=== PATIENT | male | born 1965 | race Caucasian/White ===

== ENCOUNTER 2022-06-30 19:19 | Emergency (ER) | payer SELFPAY ==
[2022-06-30 19:22] VITALS: BP 184/104; PULSE 106; RESP 18; TEMP 36.5; O2SAT 98
--- NOTE | 2022-06-30 19:26 | ECG_ITS ---
Measurements Intervals [place] Rate: 95 P: 51 MO: 148 QRS: 11 QRSD: 111 T: 49 QT: 348 QTc: 439 Interpretive Statements SINUS RHYTHM POSSIBLE LEFT ATRIAL ENLARGEMENT [-0.1mV P WAVE IN V1/V2] INCOMPLETE RIGHT BUNDLE BRANCH BLOCK [90+ ms QRS DURATION, TERMINAL R IN V1/V2, 40+ ms S IN I/aVL/V4/V5/V6] NO PREVIOUS ECG AVAILABLE FOR COMPARISON Electronically Signed On 07-01-2022 13:16:54 CMM PROGRAMMER by Nader Rondon M.D.
== END 2022-06-30 19:35 | disposition left against medical advice (07) ==
PROVIDERS: Emergency Provider Emergency Medicine; PCP Internal Medicine
DX: R20.2 Paresthesia of skin (principal)
CPT/HCPCS: 93005; 99199

== ENCOUNTER 2023-11-10 10:36 | Emergency (ER) | payer BC, SELFPAY ==
[2023-11-10 10:45] VITALS: BP 146/98; PULSE 84; RESP 16; TEMP 36.7; O2SAT 99
--- NOTE | 2023-11-10 10:50 | ED.EYEPROB ---
HPI - Eye Problem General Chief complaint: Eye Problems Stated complaint: EYE REDNESS/ITCHING Time Seen by Provider: 11/10/23 10:46 Source: patient and RN notes reviewed Mode of arrival: ambulatory Limitations: no limitations History of Present Illness HPI Narrative: 58-year-old male presents with concern for right Descovy irritation, discomfort, drainage from the right eye a that started 2 days ago. He denies any trauma or injury to the eye, he does not were contact lenses. Denies any recent upper respiratory infection. chief complaint: eye redness Related Data Allergies Allergy/AdvReac Type Severity Reaction Status Date / Time No Known Allergies Allergy Verified 11/10/23 10:45 Review of Systems Review of Systems: CONSTITUTIONAL: Denies malaise, chills, sweats, or fever. EYES: Denies visual changes. Reports right redness, irritation, discharge. ENT: Denies rhinorrhea, congestion, sinus pain, otalgia or sore throat. SKIN: Denies rash or itching. NEUROLOGIC: Denies numbness, weakness, or headache. PSYCHIATRIC: Denies anxiety or depression. All systems reviewed & are unremarkable except as noted in HPI and below [facility] Family History Family History (System 07/11/19 @ 09:12 by Melly Lowe) Father Patient's father is in good health Sibling Patient's sister is in good health Mother Family history of diabetes mellitus in first degree relative Social History Social History (System 07/11/19 @ 09:12 by Melly Lowe) Smoking status: Never smoker Alcohol intake: never Comments At time of signature, agree with nursing past medical, surgical, social and family history. There is no relevant family history pertinent to the presenting complaint Exam Narrative: GENERAL: Well-appearing, well-nourished, and in no acute distress. HEAD: Normocephalic, atraumatic. EYES: PERRLA, left sclera clear, and EOMI. No nystagmus. Right sclera and Bilateral conjunctivae injected with drainage noted. Upper and lower eyelid unremarkable, no periorbital edema noted ENT: Nares clear, turbinates pink, no rhinorrhea or epistaxis. Mucous membranes moist. TM pearly wynne with sharp light reflex bilaterally; no tragal tenderness. NECK: Supple. CHEST: No respiratory distress. Speaks in full sentences. HEART: Regular rate and rhythm. SKIN: Warm, dry, no visible rash. NEURO: Alert and oriented x3. PSYCH: Normal mood and affect Course Course Emergency Course: Patient is aware of diagnosis, understands and agrees to treatment plan. Anticipatory guidance given. Patient agrees to follow-up as directed and is aware of reasons to seek care at the emergency department. Portions of this record may have been created with voice recognition software Level of Care: Express Care Visit Vital Signs Vital signs: Vital Signs Temperature 98.1 F 11/10/23 10:45 Pulse Rate 84 11/10/23 10:45 Respiratory Rate 16 11/10/23 10:45 Blood Pressure 146/98 H 11/10/23 10:45 Pulse Oximetry 99 11/10/23 10:45 Temperature 98.1 F 11/10/23 10:45 Pulse Rate 84 11/10/23 10:45 Respiratory Rate 16 11/10/23 10:45 Blood Pressure 146/98 H 11/10/23 10:45 Pulse Oximetry 99 11/10/23 10:45 Reviewed. MDM - Eye Problem MDM Narrative Medical decision making narrative: Consideration of the following conditions may be warranted for the presenting problem, they are not final diagnoses: Bacterial conjunctivitis, allergic conjunctivitis, viral conjunctivitis, foreign body, blepharitis, chalazion, hordeolum, corneal abrasion, preseptal cellulitis, orbital cellulitis. No evidence of proptosis, ophthalmoplegia, vision loss, pain with eye movement. Exam findings show no acute concerns or changes; patient is non-toxic appearing and is in no distress. Patient is appropriate for outpatient treatment and follow-up. Critical Care Time Critical Care Time Critical Care Time: No Discharge Plan Discharge Clinical Impress
== END 2023-11-10 10:56 | disposition home or self-care (01) ==
PROVIDERS: Emergency Provider Nurse Practitioner
DX: H10.9 Unspecified conjunctivitis (principal)
CPT/HCPCS: 99213; G0463

== ENCOUNTER 2024-05-12 06:57 | Inpatient (IN) | payer BC, SELFPAY ==
[2024-05-12] VITALS (27 sets, daily range): BP systolic 96–126; BP diastolic 70–105; PULSE 93–116; RESP 12–28; TEMP 36.3–37.7; O2SAT 94–100; BMI 34.1
--- NOTE | 2024-05-12 | ECHO_ITS ---
Patient Info Name: Bert Morales Age: 59 years : 1965 Gender: Male Ht: 71 in Wt: 244 lbs BSA: 2.39 m2 HR: 103 bpm BP: 123 / 85 mmHg Heart Rhythm: Sinus Rhythm, Right Bundle Branch Block Technical Quality: Fair Exam Date: 05/12/2024 11:12 AM Exam Location: Echo Lab Patient Status: Inpatient Admit Date: 05/12/2024 Staff Ordering Physician: Nader Rondon MD (jaclyn/gregoria) Product Support Rep: Andrea Pat RDCS Attending Provider: Nader Rondon MD (jaclyn/gregoria) Referring Physician: Alcon ACE; Exam Type: CA echo dop color flow w con Study Info Indications - NSTEMI Complete two-dimensional, color flow and Doppler transthoracic echocardiogram is performed with contrast to opacify the left ventricle and to improve the deliniation of the left ventricle endocardial borders. Summary 1. Left ventricular chamber dimension is moderately enlarged. 2. Left ventricular systolic function is severely reduced, estimated at 15-20%. 3. The left ventricular diastolic function is grade I diastolic dysfunction. 4. Right ventricular systolic function is normal. 5. Left atrial chamber dimension is mildly enlarged. 6. There is mild mitral valve regurgitation. 7. There is mild tricuspid valve regurgitation. Left Ventricle Left ventricular chamber dimension is moderately enlarged. Left ventricular systolic function is severely reduced, estimated at 15-20%. There is no increased left ventricular wall thickness. The left ventricular diastolic function is grade I diastolic dysfunction. Right Ventricle Right ventricular chamber dimension is normal. Right ventricular systolic function is normal. Left Atria Left atrial chamber dimension is mildly enlarged. Right Atria Right atrial chamber dimension is normal. Atrial Septum Intact interatrial septum visualized by color flow imaging. Aortic Valve The aortic valve is not well visualized. There is no aortic valve stenosis. There is mild aortic valve calcification. Pulmonic Valve The pulmonic valve is not well visualized. Mitral Valve There is mild mitral valve regurgitation. Tricuspid Valve There is mild tricuspid valve regurgitation. Pericardium/Pleural There is no pericardial effusion. Inferior Vena Cava Dilated inferior vena cava with <50% collapse upon inspiration consistent with elevated right atrial pressure, 15 mmHg. Aorta The aortic root size at the sinus of Valsalva is normal. Left Ventricular Outflow Tract Name Value Normal LVOT 2D LVOT Diameter 2.01 cm LVOT Doppler LVOT Peak Gradient 2 mmHg LVOT Mean Gradient 1 mmHg LVOT VTI 10.48 cm LVOT VTI/AV VTI Ratio 0.84 LVOT Stroke Volume 33.31 ml LVOT CO 3.11 l/min LVOT CI 1.30 L/min/m2 Mitral Valve Name Value Normal MV Doppler MV Decel Hall 513.96 cm/s2 MV PHT 0 s MV Area (PHT) 5.16 cm2 4.00-5.00 MV Regurgitation Doppler MR Peak Gradient 30 mmHg MV Diastolic Function MV E Peak Velocity 75.55 cm/s MV A Peak Velocity 53.18 cm/s MV E/A 1.42 MV Decel Time 0 s MV Annular TDI MV E/e' (Septal) 16.11 <=8.00 MV E/e' (Lateral) 21.20 <=8.00 MV E/e' (Average) 18.65 Tricuspid Valve Name Value Normal TV Regurgitation Doppler TR Peak Velocity 127.41 cm/s TR Peak Gradient 6 mmHg Estimated PAP/RSVP RA Pressure 15 mmHg <=5 PA Systolic Pressure 21 mmHg <36 RV Systolic Pressure 21 mmHg <36 Aortic Valve Name Value Normal AV Doppler AV Peak Velocity 77.64 cm/s AV Peak Gradient 2 mmHg AV Mean Gradient 2 mmHg AV VTI 12.53 cm AV Area (Cont Eq VTI) 2.66 cm2 >=3.00 AV Area (Cont Eq Tommy) 2.83 cm2 AV Regurgitation 2D LVOT Area 3.18 cm2 Ventricles Name Value Normal LV Dimensions 2D/MM IVS Diastolic Thickness (2D) 1.00 cm 0.60-1.00 LVID Diastole (2D) 6.03 cm 4.20-5.80 LVIW Diastolic Thickness (2D) 0.97 cm 0.60-1.00 LVID Systole (2D) 4.05 cm 2.50-4.00 LVOT Diameter 2.01 cm LV Mass (2D Cubed) 244.89 g 88.00-224.00 LV Mass Index (2D Cubed) 0.01 g/cm2 0.00-0.01 Relative Wall Thickness (2D) 0.32 LV Fractional Shortening/Ejection Fraction 2D/MM LV Fractional Shortening (2D) 33 % 25-43 LV EF (2D Teicholz) 60 % 52-72 LV Diastolic Volume (4C MOD) 145.71 ml LV EF (4C MOD) 60 % LV Diastolic Volume (2C MOD) 125.09 ml LV EF (2C MOD) 61 % LV Diastolic Volume (BP MOD) 137.40 ml 62.00-150.00 LV Diastolic Volume Index (BP MOD) 0.06 l/m2 0.03-0.07 LV Systolic Volume (BP MOD) 52.98 ml 21.00-61.00 LV Systolic Volume Index (BP MOD) 0.02 l/m2 0.01-0.03 LV EF (BP MOD) 61 % 52-72 LV Diastolic Length (4C) 8.76 cm LV Systolic Length (4C) 6.55 cm LV Stroke Volume (4C MOD) 87.67 ml Atria Name Value Normal LA Dimensions LA Volume (4C A-L) 33.74 ml LA Volume (BP A-L) 41.31 ml RA Dimensions RA Area (4C) 8.93 cm2 <=18.00 Report Signatures
--- NOTE | ~2024-05-12 | XR_ITS ---
XR chest 1V portable 05/12/2024 11:57 Indication: Shortness of breath Procedure: AP portable chest Comparison: No prior studies for comparison. Findings: Cardiomegaly with interstitial edema. No pleural effusion or pneumothorax. No acute osseous abnormality. Impression: 1: Mild interstitial edema. Reviewed, dictated and finalized at location B. Impression: 1: Mild interstitial edema.
--- NOTE | ~2024-05-12 | XR_ITS ---
EXAMINATION: XR chest PICC line DATE: 05/12/2024 13:04 INDICATION: Central line placement. TECHNIQUE: A single frontal view of the chest was obtained on 2 radiographs. COMPARISON: Chest view 05/12/2024 FINDINGS: There is no pneumonia, pleural effusion, or pneumothorax. The heart size is normal. A left upper extremity peripherally inserted central venous catheter (PICC) is seen with tip in the superior vena cava. IMPRESSION: 1. PICC tip in the superior vena cava. Reviewed, dictated and finalized at location A.
--- NOTE | ~2024-05-12 | XR_ITS ---
EXAMINATION: XR chest 1V portable DATE: 05/14/2024 03:01 INDICATION: Hypoxia. TECHNIQUE: A single frontal view of the chest was obtained. COMPARISON: Chest single view 05/12/2024 FINDINGS: The patient is rotated to his left. There are airspace opacities in left lower lung zone. T here is a small left pleural effusion. No pneumothorax. The heart size is normal. A left upper extrem ity peripherally inserted central venous catheter (PICC) is seen with tip at superior cavoatrial junc tion. IMPRESSION: 1. Worsened airspace opacities in left lower lung zone, consistent with atelectasis versus pneumonia. 2. Small left pleural effusion. Reviewed, dictated and finalized at location A. IMPRESSION: 1. Worsened airspace opacities in left lower lung zone, consistent with atelect asis versus pneumonia. 2. Small left pleural effusion.
--- NOTE | 2024-05-12 07:00 | ECG_ITS ---
Test Date: 2024-05-12 07:07:27 Measurements Intervals [place] Rate: 108 P: 55 [place]: 160 QRS: 94 QRSD: 154 T: 64 QT: 402 QTc: 541 Interpretive Statements SINUS TACHYCARDIA LEFT ATRIAL ENLARGEMENT [-0.15mV P-WAVE IN V1/V2] BORDERLINE RIGHT AXIS DEVIATION [QRS AXIS > 90] RIGHT BUNDLE BRANCH BLOCK MARKED ST ELEVATION, CONSIDER ANTERIOR INJURY [MARKED ST ELEVATION W/O NORMALLY INFLECTED T-WAVE IN V2-V5] MARKED ST ELEVATION, CONSIDER INFERIOR INJURY [MARKED ST ELEVATION W/O NORMALLY INFLECTED T-WAVE IN II/aVF] ACUTE [place] No previous ECG available for comparison Electronically Signed On 05-12-2024 15:34:42 CDT by Nader Rondon M.D.
--- NOTE | 2024-05-12 07:12 | ECG_ITS ---
Test Date: 2024-05-12 07:21:09 Measurements Intervals [place] Rate: 103 P: 70 [place]: 178 QRS: 107 QRSD: 153 T: 30 QT: 398 QTc: 523 Interpretive Statements ALTERNATE LEAD PLACEMENT: Posterior V1: V7, V2: V8, V3: V9, V4: V4, V5: V5, V6: V6 SINUS TACHYCARDIA LEFT ATRIAL ENLARGEMENT RIGHT BUNDLE BRANCH BLOCK MARKED ST ELEVATION, CONSIDER ANTERIOR INJURY [MARKED ST ELEVATION W/O NORMALLY INFLECTED T-WAVE IN V2-V5] MARKED ST ELEVATION, CONSIDER INFERIOR INJURY [MARKED ST ELEVATION W/O NORMALLY INFLECTED T-WAVE IN II/aVF] ACUTE ID Compared to ECG 05/12/2024 07:07:27 NO SIGNIFICANT CHANGES Electronically Signed On 05-12-2024 15:35:28 CDT by Nader Rondon M.D.
[2024-05-12] MEDS: ASPIRIN 81 MG CHEWABLE TABLET 324 MG PO (07:32)
--- NOTE | 2024-05-12 07:36 | ED_ITS ---
HPI - Chest Pain General Chief Complaint: Chest Pain Stated Complaint: chest pain/sob Time Seen by Provider: 05/12/24 07:34 Source: patient Limitations: no limitations History of Present Illness HPI narrative: Patient presents with acute onset chest pain that started at 1am while he was sleeping, waking him up. Pain is substernal, not radiating although he describes the feeling that his shoulders feel both weak and heavy. He became sweaty with the episode as well as nauseated. No vomiting but has been dry heaving. He noted that his heart rate, which is normally in the 70s, read 114 on his apple watch. [place] like he needed deep breaths. Questionable history of hypertension. He does have hyperlipidemia but is not on a statin. No prior [place]/TIA/CVA. No family history FL <65yo. He has type 2 diabetes, not on insulin. Non smoker. Related Data Home Medications Medication Instructions Recorded Confirmed No Home Medications 05/12/24 05/12/24 Allergies Allergy/AdvReac Type Severity Reaction Status Date / Time No Known Allergies Allergy Verified 05/12/24 06:57 [facility] Past Medical History Medical History Hyperlipidemia Hypertension Non-insulin dependent type 2 diabetes mellitus Family History Family History Father Patient's father is in good health Sibling Patient's sister is in good health Mother Family history of diabetes mellitus in first degree relative TIA (transient ischemic attack) Social History Social History (Updated 05/12/24 @ 22:35 by Savanna Chacon MD) Social History: Occasional alcohol intake. Denies any smoking or drug use. 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 . Smoking status: Never smoker Alcohol intake: current Drinks per week: 1 Substance use: never Do You Feel Safe in your Home?: Yes Lack of Transportation: No Lack of Food: Never True Current Housing: Decline to Answer Concerned About Future Housing: Decline to Answer Difficulty Paying Gas/Electric Bills: Decline to Answer Difficulty Paying for Meds: Decline to Answer Currently Unemployed: Decline to Answer Education: Decline to Answer Difficulty w/ Childcare or Family Care: Decline to Answer Spiritual care concerns: No Exam Narrative: GENERAL: Acutely ill appearing, well-nourished but pale HEAD: Normocephalic, atraumatic. EYES: Non injected, non icteric ENT: Nares clear, no rhinorrhea or epistaxis. NECK: Supple. CHEST: Speaking in full sentences. No respiratory distress. HEART: Tachycardic rate and rhythm. . ABDOMEN: Soft, nondistended. Obese. EXTREMITIES: Normal range of motion. No lower extremity edema. SKIN: Warm, no rash. Mildly Diaphoretic. NEURO: No focal deficits. Alert and oriented x3. PSYCH: Congruent mood and affect. Course Vital Signs Vital signs: Vital Signs Temperature 97.6 F 05/12/24 07:02 Pulse Rate 109 H 05/12/24 07:02 Respiratory Rate 16 05/12/24 07:02 Blood Pressure 120/89 05/12/24 07:02 Pulse Oximetry 100 05/12/24 07:02 Oxygen Delivery Room Air 05/12/24 07:02 Temperature 99.6 F 05/12/24 22:05 Pulse Rate 96 05/12/24 22:05 Respiratory Rate 20 05/12/24 22:05 Blood Pressure 108/74 05/12/24 22:05 Pulse Oximetry 99 05/12/24 22:05 Oxygen Delivery Room Air 05/12/24 20:00 Oxygen Flow Rate 2 05/12/24 16:00 MDM - Chest Pain MDM Narrative Medical decision making narrative: Patient presents with acute onset chest pain waking him from sleep at 1 am. In the ED he is afebrile with VS that show tachycardia. I am concerned about the findings on the initial EKG. Requested posterior EKG be performed while attempt to find old EKG for comparison and I go to evaluate the patient. STory is concerning as are the EKGs and the change from previous. Discussed with Dr Rondon who concurs with activating STEMI / environmental laboratory technician and gives recommendations for pre medication loading. Patient has already received aspirin. I am notified the patient's glucose is 530. Urinalysis, beta hydroxybutyrate, and initial 1 L fluid bolus ordered while await other studies. For this and other risk factor stratification/modification, also ordered hemoglobin A1c and lipid panel. He does have an anion gap and slight acidosis. Sodium corrects to 143-146 (psuedohyponatremia) given hyperglycemia. Patient has left the emergency department and gone to the cardiac catheterization lab at the time his troponin lab results as elevated. === HEART SCORE History 2 highly suspicious 1 moderately suspicious 0 slightly suspicious History score [address] depression/elevation not due to LBBB, LVH, or digoxin [address] depression but LBBB, LVH, nonspecific repolarization changes 0 normal ECG score 2 Age 2 >/= 65 1 45-64 0 <45 Age score 1 Risk factors (HTN, hypercholesterolemia, DM, obesity with BMI >30, current smoker or cessation </=3mo), positive fam hx with parent or sibling with CVD before age 65, atherosclerotic disease (prior [place], PCI/CABG, CVA/TIA, or peripheral arterial disease) 2 >/= 3 risk factors or history of atherosclerotic dz 1 - 1-2 risk factors 0 no known risk factors Risk factor score 2 (questionable HTN, HLD, DM, obesity) Initial Troponin 2 >3 times normal limit 1 1-3 times normal limit 0 less than or equal to normal limit Troponin score 2 (>45 x upper limit of normal) Total HEART Score 8 Critical Care: 1 or more vital organ systems impaired with a high probability of imminent or life-threatening deterioration in the patient's condition requiring frequent personal assessment and manipulation of the patient's condition. This included time spent evaluating the patient, speaking with EMS pre-hospital personnel and family, reviewing/interpreting laboratory/imaging studies, discussing the case with consultants or admitting teams, retrieving data and reviewing charts, monitoring for decompensation, documenting the visit, and performing bundled procedures exclusive of separately billed procedures. Lab Data 05/12/24 07:30 05/12/24 18:05 Labs: Lab Results 05/12/24 Range/Units 07:30 WBC 12.5 H (4.5-10.0) K/mm3 RBC 5.27 (4.6-6.20) M/mm3 Hgb 16.0 (14.0-18.0) g/dL Hct 47.8 (42.0-52.0) % MCV 90.7 (80-100) fl MCH 30.4 (26-34) pg MCHC 33.5 (32-36) g/dl RDW 12.4 (11.5-14.5) % Plt Count 301 (150-375) k/mm3 MPV 10.2 (7.4-10.4) fl Immature Gran % (Auto) 0.6 H (0-0.5) % Neut % (Auto) 83.4 H (45.5-73.1) % Lymph % (Auto) 12.4 L (18.3-44.2) % [place] % (Auto) 3.3 (2.6-8.5) % Eos % (Auto) 0.1 (0-4.4) % Baso % (Auto) 0.2 (0.2-1.2) % Lymph # (Auto) 1.55 (0.9-3.2) K/mm3 [place] # (Auto) 0.4 (0.1-0.6) K/mm3 Eos # (Auto) 0.0 (0-0.3) K/mm3 Baso # (Auto) 0.0 (0.0-0.1) K/mm3 Abs Immat Gran (auto) 0.07 H (0.00-0.031) K/mm3 Absolute Neuts (auto) 10.5 H (1.3-6.7) K/mm3 Absolute Nucleated RBC 0.000 (0.0-0.012) K/mm3 Nucleated RBC % 0.0 (0.0-0.2) % PT 13.1 (11.1-14.7) Seconds INR 1.0 APTT 23.3 (22.3-36.8) Seconds Sodium 136 L (137-145) mmol/L Potassium 4.3 (3.4-5.0) mmol/L Chloride 96 L (98-107) mmol/L Carbon Dioxide 20 L (22-30) mmol/L Anion Gap 20 H (4-12) mmol/L BUN 19 (9-20) mg/dL Creatinine 1.10 (0.7-1.3) mg/dL Estim Creat Clear Calc 82 ml/min Estimated GFR > 60 (59 - ) Glucose 530 H* (65-110) mg/dL Hemoglobin A1c 12.1 H (<5.7) % Calcium 8.9 (8.4-10.2) mg/dL Total Bilirubin 1.0 (0.2-1.3) mg/dL AST 51 (17-59) U/L ALT 36 (6-50) U/L Alkaline Phosphatase 89 (38-126) U/L Troponin I 1.540 H* (0.000-0.034) ng/mL Total Protein 8.0 (6.3-8.2) g/dL Albumin 4.7 (3.5-5.1) g/dL Triglycerides 219 H (<150) mg/dL Cholesterol 222 H (0-200) mg/dL LDL Cholesterol Direct 148 mg/dL HDL Direct 36 mg/dL Lipase 71 (23-300) U/L Beta-Hydroxybutyrate/Acetoacetate 2.79 H (0.02-0.27) mmol/L ECG Data EKG #1: Attestation: I personally reviewed and interpreted this ECG as follows: ECG completion date: 05/12/24 ECG completion time: 07:07 Prior ECG tracings: available for review (06/30/2022 without the features identified on today's EKG) Interpretation: patient is concerning ST segment elevations in leads 3 and AVF as well as V3 and V4 Concerning for inferior and anterior infarction. Sinus tachycardia rate of 108 beats per minute. ID interval 160. QRS 154. QT/QTC 402/541. EKG #2: Attestation: I personally reviewed and interpreted this ECG as follows: ECG completion date: 05/12/24 ECG completion time: 07:21 Interpretation: posterior EKG is performed. I did verify with nursing staff intact that leads 4 5 and 6 were used to obtain new V7, V8, and V9 respectively along posterior aspect of chest though the 12lead does not seem to identify this. sinus tachycardia at a rate of 103 beats per minute, ID interval 178, QRS 153. QT/ QTC 398/523. Critical Care Time Critical Care Time Critical Care Time: Yes Total Critical Care Time: 25 Discharge Plan Discharge Clinical Impression: ST elevation (STEMI) myocardial infarction, Hyperglycemia due to diabetes mellitus, Pseudohyponatremia, Leukocytosis Patient Disposition: Still a Patient Condition: Serious
[2024-05-12 07:37] LABS: Basophils Percent Auto 0.2 % (0.2-1.2); Eosinophils Percent Auto 0.1 % (0-4.4); Hematocrit 47.8 % (42.0-52.0); Immature Granulocyte Absolute 0.07 K/mm3 (0.00-0.031); Immature Granulocyte Percent A 0.6 % (0-0.5); Lymphocytes Absolute Auto 1.55 K/mm3 (0.9-3.2); Lymphocytes Percent Auto 12.4 % (18.3-44.2); Mean Corpuscular HGB Conc 33.5 g/dl (32-36); Mean Corpuscular Hemoglobin 30.4 pg (26-34); Mean Corpuscular Volume 90.7 fl (80-100); Mean Platelet Volume 10.2 fl (7.4-10.4); Monocytes Absolute Auto 0.4 K/mm3 (0.1-0.6); Monocytes Percent Auto 3.3 % (2.6-8.5); Neutrophils Absolute Auto 10.5 K/mm3 (1.3-6.7); Neutrophils Percent Auto 83.4 % (45.5-73.1); Platelet Count Result 301 k/mm3 (150-375); Red Blood Count 5.27 M/mm3 (4.6-6.20); Red Cell Distribution Width 12.4 % (11.5-14.5); White Blood Count 12.5 K/mm3 (4.5-10.0)
--- NOTE | 2024-05-12 07:40 | PC.NURSE ---
5000 units heparin given per verbal order from Dr Chacon [id number] given chemistry laboratory technician in department at this time
[2024-05-12] MEDS: HEPARIN SODIUM 5,000 UNITS/ML VIAL 5000 UNITS IV PUSH (07:43)
[2024-05-12] MEDS: TICAGRELOR 90 MG TABLET 180 MG PO ×2 (07:43→13:08)
--- NOTE | 2024-05-12 07:45 | PC.NURSE ---
0718 - Dr. Rondon called 0731 - STEMI called overhead 0733 - Lavelle sent 0734 - Wero called for STEMI Standby Incident # [id number]
[2024-05-12 07:51] LABS: Alanine Aminotransferase 36 U/L (6-50); Albumin Level 4.7 g/dL (3.5-5.1); Alkaline Phosphatase 89 U/L (38-126); Anion Gap 20 mmol/L (4-12); Aspartate Amino Transferase 51 U/L (17-59); Blood Urea Nitrogen 19 mg/dL (9-20); Calcium 8.9 mg/dL (8.4-10.2); Carbon Dioxide 20 mmol/L (22-30); Chloride 96 mmol/L (98-107); Estimated CRCL calculation 82 ml/min; Estimated Glomerular Filt Rate > 60; Glucose 530 mg/dL (65-110); Lipase 71 U/L (23-300); Potassium 4.3 mmol/L (3.4-5.0); Sodium 136 mmol/L (137-145)
--- NOTE | 2024-05-12 08:01 | PC.NURSE ---
patient taken to cardiovascular lab director @[phone]
[2024-05-12 08:10] LABS: Prothrombin Time 13.1 Seconds (11.1-14.7)
[2024-05-12 08:11] LABS: Partial Thromboplastin Time 23.3 Seconds (22.3-36.8)
[2024-05-12 08:37] LABS: Hemoglobin A1C 12.1 % (<5.7)
[2024-05-12 08:52] LABS: Cholesterol 222 mg/dL (0-200); HDL Direct 36 mg/dL; Triglycerides 219 mg/dL (<150)
[2024-05-12 08:58] LABS: Beta-Hydroxybutyrate/Acetoacetate 2.79 mmol/L (0.02-0.27)
[2024-05-12 09:03] LABS: LDL Cholesterol Direct 148 mg/dL
--- NOTE | 2024-05-12 10:13 | PM.IMHP ---
H&P: HPI History of Present Illness Date/Time: 05/12/24 10:13 Chief Complaint: Chest pain Narrative: Patient is a 59 year old male with hypertension, hyperlipidemia, diabetes mellitus, obesity who presented to [place] ER with chest pain. Initial EKG showed sinus tachycardia, right bundle branch block with ST elevations in V3, V4, V5, III, AVF. tender labor activated for STEMI. Patient with active chest pain. Hemodynamically stable in the ED. Initial blood glucose is 530. Review of Systems Review of Systems: All systems reviewed & are unremarkable except as noted in HPI and below (HPI) [facility] Family History Family History Father Patient's father is in good health Sibling Patient's sister is in good health Mother Family history of diabetes mellitus in first degree relative Social History Social History Smoking status: Never smoker Alcohol intake: never Meds Home Medications and Allergies Home Medications Medication Instructions Recorded Confirmed Type No Home Medications 05/12/24 05/12/24 History Allergies Allergy/AdvReac Type Severity Reaction Status Date / Time No Known Allergies Allergy Verified 05/12/24 06:57 Vital Signs Vital Signs - 24 hr 05/12/24 07:02 05/12/24 07:15 05/12/24 07:30 Temperature 36.4 C Pulse Rate 109 H 104 H 104 H Respiratory Rate 16 18 18 Blood Pressure 120/89 96/83 L 112/89 Pulse Oximetry 100 95 97 Oxygen Delivery Room Air 05/12/24 07:55 Temperature Pulse Rate 103 H Respiratory Rate 20 Blood Pressure 123/85 Pulse Oximetry 97 Oxygen Delivery Exam Const: Other: Ill appearing male Resp: Effort & Inspection: normal respiratory effort Cardio: Rate: tachycardic Rhythm: regular rhythm Neuro: Speech: normal speech Psych: Mental Status: mental status grossly normal Affect: normal affect H&P: Results Labs Labs: Short CBC 05/12/24 Range/Units 07:30 WBC 12.5 H (4.5-10.0) K/mm3 Hgb 16.0 (14.0-18.0) g/dL Hct 47.8 (42.0-52.0) % Plt Count 301 (150-375) k/mm3 BMP 05/12/24 07:30 Sodium 136 L Potassium 4.3 Chloride 96 L Carbon Dioxide 20 L BUN 19 Creatinine 1.10 Glucose 530 H* Calcium 8.9 Cardiac Enzymes 05/12/24 Range/Units 07:30 Troponin I 1.540 H* (0.000-0.034) ng/mL Liver Function 05/12/24 Range/Units 07:30 Total Bilirubin 1.0 (0.2-1.3) mg/dL AST 51 (17-59) U/L ALT 36 (6-50) U/L Alkaline Phosphatase 89 (38-126) U/L Albumin 4.7 (3.5-5.1) g/dL Assessment and Plan Assessment and plan (1) ST elevation (STEMI) myocardial infarction: Code(s): I21.3 - ST elevation (STEMI) myocardial infarction of unspecified site Status: Acute Assessment and Plan: LAD STEMI in the setting of DKA (did not realize he was in DKA until after completion of cath). S/p YOUNG x 1 to the LAD. Has significant disease in the RCA, LCX, and Diagonal branch, will need to determine revascularization plan once he recovers from this event. Given MVCAD and diabetes mellitus, should undergo surgical evaluation for CABG, however, I am concerned he may not have good targets. Loaded with ASA 324mg x 1 in the ED. Continue ASA 81mg once daily. Loaded with Brilinta 180mg x 1 prior to start of cath, however, he vomiting during the cath. Therefore, re-loaded with Brilinta 180mg x 1 as a precaution. LVEDP 49mmHg in the photofinishing laboratory worker, given Lasix 40mg x 1 on photofinishing laboratory worker table. Start high intensity statin. Echocardiogram. (2) Diabetic ketoacidosis: Code(s): E11.10 - Type 2 diabetes mellitus with ketoacidosis without coma Status: Acute Assessment and Plan: He is in DKA. Management as per ICU team. (3) Hypertension: Code(s): I10 - Essential (primary) hypertension Status: Acute Assessment and Plan: Required pressor support in the photofinishing laboratory worker, therefore, will not start any antihypertensives at this time. (4) Hyperlipidemia: Code(s): E78.5 - Hyperlipidemia, unspecified Status: Acute Assessment and Plan: Start Atorvastatin 80mg once daily. Plan Patient is critically ill at this time given STEMI, DKA. Recommendations and plan discussed with Hospitalist.
--- NOTE | 2024-05-12 10:19 | WPDCNINT ---
Assessment and Plan Assessment and plan (1) ST elevation (STEMI) myocardial infarction: Code(s): I21.3 - ST elevation (STEMI) myocardial infarction of unspecified site Status: Acute Assessment and Plan: Anterior STEMI status post cardiac catheterization 1. Multivessel coronary artery disease with culprit being complete 100% occlusion of the proximal LAD s/p PCI with YOUNG x 1. 2. Significantly elevated left ventricular end-diastolic pressure of 49mmHg Getting Angiomax infusion at this time Aspirin Brilinta statin Hold beta-robinson and Chin due to hypotension Check echocardiogram ICU desk monitor npo (2) Diabetic ketoacidosis: Code(s): E11.10 - Type 2 diabetes mellitus with ketoacidosis without coma Status: Acute Assessment and Plan: Patient presented with DKA but due to STEMI was not initiated any treatment. I will start Insulin infusion started and Q1H glucose monitoring will be done done Serial labs ordered Replace electrolytes as needed Due to elevated LVEDP and cardiomyopathy will hold any further fluids. 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 Will transition to SC insulin once AG is closed and clinically improved (3) Cardiomyopathy: Code(s): I42.9 - Cardiomyopathy, unspecified Status: Acute Assessment and Plan: Elevated LVEDP during cardiac catheterization Check echocardiogram (4) Hyperlipidemia: Code(s): E78.5 - Hyperlipidemia, unspecified Status: Acute Assessment and Plan: Statin started (5) Hypertension: Code(s): I10 - Essential (primary) hypertension Status: Acute Assessment and Plan: Blood pressure was low during the procedure Improved now Monitor Hold antihypertensives at this time (6) Nausea & vomiting: Code(s): R11.2 - Nausea with vomiting, unspecified Status: Acute Assessment and Plan: Secondary to STEMI and DKA P.r.fabiana Mancia (7) Ventricular fibrillation: Code(s): I49.01 - Ventricular fibrillation Status: Acute Assessment and Plan: Patient had 1 VFib episode during cardiac catheterization requiring DC defibrillation likely secondary be perfusion or irritation from the wire Monitor in ICU Treatment if it recurs Check electrolytes Plan DVT prophylaxis -received heparin with the procedure. Start Lovenox from tomorrow. Nutrition - npo Code Status - Full Code patient wants her son Kelton to be decision maker on his behalf if he is unable to do so himself. Case discussed with Cardiology Dr. Rondon Total Critical Care Time - 40 minutes Due to a high probability of clinically significant, life threatening deterioration, the patient required my highest level of preparedness to intervene emergently and I personally spent this critical care time directly and personally managing the patient. This critical care time included obtaining a history; examining the patient; pulse oximetry; ordering and review of studies; arranging urgent treatment with development of a management plan; evaluation of patient's response to treatment; frequent reassessment; and discussions with other providers. It was exclusive of separately billable procedures and treating other patients and teaching time. Please see Assessment and Plan section and the rest of the note for further information on patient assessment and treatment Product Development Assistant Consult Note Consult date: 05/12/24 Reason for consult: DKA STEMI HPI: Bert Morales is a 59 year old male with history of diabetes hyperlipidemia and hypertension who presented with chief complaint of chest pain and shortness of breath. Lab work showed elevated blood glucose and beta hydroxybutyrate sister DKA. Patient also had ST elevation in his EKG suggestive of STEMI. Cardiology was called and patient was taken to cardiac catheterization lab. Patient states that around 1:00 a.m. this morning he started having chest pain which was pressure in quality 7/10 with no radiation. Pain was constant with associated with shortness of Breath. He states he had difficulty breathing. He also felt nauseous. Denies any fever cough abdominal diarrhea. States when he went to bed last night he was feeling fine. He denies any similar chest pain in recent past. But he has had worsening dyspnea on exertion over last few months. He denies any orthopnea but did had episodes of PND. All other systems were reviewed and were negative. He states he has history of diabetes hypertension hyperlipidemia but has not taken any medication any years. He has seen any physician in the office for many years. Review of Systems Review of Systems: All systems reviewed & are unremarkable except as noted in HPI and below (HPI) [facility] Past Medical History Medical History (Updated 05/12/24 @ 11:01 by Derrell Alberto MD) Diabetes mellitus Hyperlipidemia Hypertension Family History Family History Father Patient's father is in good health Sibling Patient's sister is in good health Mother Family history of diabetes mellitus in first degree relative Social History Social History (Updated 05/12/24 @ 11:01 by Derrell Alberto MD) Social History: Occasional alcohol intake. Denies any smoking or drug use. 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 Smoking status: Never smoker Alcohol intake: never Meds Home Medications and Allergies Home Medications Medication Instructions Recorded Confirmed Type No Home Medications 05/12/24 05/12/24 History Allergies Allergy/AdvReac Type Severity Reaction Status Date / Time No Known Allergies Allergy Verified 05/12/24 06:57 Vital Signs Vital Signs - 24 hr 05/12/24 07:02 05/12/24 07:15 05/12/24 07:30 Temperature 36.4 C Pulse Rate 109 H 104 H 104 H Respiratory Rate 16 18 18 Blood Pressure 120/89 96/83 L 112/89 Pulse Oximetry 100 95 97 Oxygen Delivery Room Air 05/12/24 07:55 Temperature Pulse Rate 103 H Respiratory Rate 20 Blood Pressure 123/85 Pulse Oximetry 97 Oxygen Delivery Exam Narrative: General: Pt is alert awake and in NAD Lungs/Chest: Trachea central Clear BS B/L, No crackles or wheezing. Cardiac: RRR. Normal S1 S2. No murmurs Circulation: Bilateral dorsalis pedis pulses are intact and symmetrical. Abdomen: Normal bowel sounds. Obese. Soft. NT. ND. Extremities: No clubbing, cyanosis or edema. Warm, TR band on right wrist good cap refill and the right hand : Moran in place Neurologic: Follows commands. Moves all 4 extremities PERRL AO x3 Skin: No Rash Results Labs 05/12/24 07:30 05/12/24 07:30 Labs: Short CBC 05/12/24 Range/Units 07:30 WBC 12.5 H (4.5-10.0) K/mm3 Hgb 16.0 (14.0-18.0) g/dL Hct 47.8 (42.0-52.0) % Plt Count 301 (150-375) k/mm3 BMP 05/12/24 07:30 Sodium 136 L Potassium 4.3 Chloride 96 L Carbon Dioxide 20 L BUN 19 Creatinine 1.10 Glucose 530 H* Calcium 8.9 Cardiac Enzymes 05/12/24 Range/Units 07:30 Troponin I 1.540 H* (0.000-0.034) ng/mL Liver Function 05/12/24 Range/Units 07:30 Total Bilirubin 1.0 (0.2-1.3) mg/dL AST 51 (17-59) U/L ALT 36 (6-50) U/L Alkaline Phosphatase 89 (38-126) U/L Albumin 4.7 (3.5-5.1) g/dL ECG Interpretation: ST elevation in anterior leads, sinus tachycardia Imaging My impression: Chest x-ray is pending Hospitalist MIPS Advance Care Plan I have confirmed that the patient's Advanced Care Plan is present, code status is documented, or surrogate decision maker is listed in patient medical record.: Yes Medication Reconciliation I have utilized all available resources to obtain, update and review the patients current medications (includes all prescriptions, OTC, herbals, cannabis, and nutritional supplements).: Yes
--- NOTE | 2024-05-12 10:24 | WPDMODSED ---
Moderate Sedation Note-Pt Data Patient Data Diagnosis: STEMI Present Complaint: STEMI Procedure to be performed/Plan: STEMI Allergies Allergy/AdvReac Type Severity Reaction Status Date / Time No Known Allergies Allergy Verified 05/12/24 06:57 Home Medications Medication Instructions Recorded Confirmed Type No Home Medications 05/12/24 05/12/24 History Current Medications: Active Medications Aspirin (Aspirin 81 Mg Enteric Tablet) 81 mg PO QAM MORA Atorvastatin Calcium (Atorvastatin 40 Mg Tablet) 80 mg PO DAILY FOR[facility]LY [facility], [facility]1983 Dextrose (Dextrose 50% 25 Gm/50 Ml Syringe) 12.5 gm IV PUSH PRN PRN; Protocol PRN Reason: Hypoglycemia Glucagon (Glucagon For Inj 1 Mg Vial) 1 mg IM PRN PRN; Protocol PRN Reason: Hypoglycemia Glucose (Glucose Oral Gel 15 Gm Of Glucse In 37.5 Gm Tube) 15 gm PO PRN PRN; Protocol PRN Reason: Hypoglycemia Heparin Sodium (Porcine) (Heparin Sodium 5,000 Units/Ml Vial) 4,000 units IV PUSH PRN PRN PRN Reason: aPTT less than 55 seconds Heparin Sodium (Porcine) (Heparin Sodium 5,000 Units/Ml Vial) 3,500 units IV PUSH PRN PRN PRN Reason: aPTT 55 - 70 seconds Heparin Sodium/Dextrose (Heparin Sodium/D5w 100 Units/Ml) 25,000 units in 250 mls @ 10 mls/hr IV CONT .Q24H MORA; Protocol Insulin Human Regular 100 (units/ Sodium Chloride) 100 mls @ 11 mls/hr IV CONT .Q9H6M MORA; Protocol Dextrose (Dextrose 5% 1,000 Ml) 1,000 mls @ 100 mls/hr IVPB PRN PRN; Protocol PRN Reason: Hypoglycemia Perflutren Lipid Microsphere (Perflutren Lipid Microspheres 1.5 Ml Vial Diluted To 10 Ml Total Volume) 0 ml IV PUSH ONCE PRN; Protocol PRN Reason: adequate visualization Stop: 05/15/24 10:13 Ticagrelor (Ticagrelor 90 Mg Tablet) 90 mg PO Q12HR FOR[facility] Sedation/Anesthesia: No previous sedation/anesthesia problems (including family history). [facility] Family History Family History Father Patient's father is in good health Sibling Patient's sister is in good health Mother Family history of diabetes mellitus in first degree relative Social History Social History Smoking status: Never smoker Alcohol intake: never Mod Sed Physical Exam Physical Exam Pre Procedural Exam: Normal: Heart Rate and Heart Rhythm and Variation: Appearance (Ill appearing ) and Lungs (Non-labored respirations ) Hours since solid foods: 0 Hours since liquid intake: 0 Mallampati Classification: class III Internal Medicine - PN: Obj Da Vital Signs Vital Signs: Vital Signs - 24 hr 05/12/24 07:02 05/12/24 07:15 05/12/24 07:30 Temperature 36.4 C Pulse Rate 109 H 104 H 104 H Respiratory Rate 16 18 18 Blood Pressure 120/89 96/83 L 112/89 Pulse Oximetry 100 95 97 Oxygen Delivery Room Air 05/12/24 07:55 Temperature Pulse Rate 103 H Respiratory Rate 20 Blood Pressure 123/85 Pulse Oximetry 97 Oxygen Delivery Meds/Results Medications: Active Medications Generic Name Dose Route Start Last Admin Trade Name Freq PRN Reason Stop Dose Admin Aspirin 81 mg 05/13/24 09:00 Aspirin 81 Mg Enteric Tablet PO QAM [facility]1983 Atorvastatin Calcium 80 mg 05/12/24 10:10 Atorvastatin 40 Mg Tablet PO DAILY FOR[facility]1983 Dextrose 12.5 gm 05/12/24 10:21 Dextrose 50% 25 Gm/50 Ml Syringe IV PUSH PRN PRN Hypoglycemia Protocol Glucagon 1 mg 05/12/24 10:21 Glucagon For Inj 1 Mg Vial IM PRN PRN Hypoglycemia Protocol Glucose 15 gm 05/12/24 10:21 Glucose Oral Gel 15 Gm Of Glucse In 37.5 Gm Tube PO PRN PRN Hypoglycemia Protocol Heparin Sodium (Porcine) 4,000 units 05/12/24 07:36 Heparin Sodium 5,000 Units/Ml Vial IV PUSH PRN PRN aPTT less than 55 seconds Heparin Sodium (Porcine) 3,500 units 05/12/24 07:36 Heparin Sodium 5,000 Units/Ml Vial IV PUSH PRN PRN aPTT 55 - 70 seconds Heparin Sodium/Dextrose 25,000 units in 250 mls @ 10 mls/hr 05/12/24 07:45 Heparin Sodium/D5w 100 Units/Ml IV CONT .Q24H MORA Protocol 1,000 UNITS/HR Insulin Human Regular 100 100 mls @ 11 mls/hr 05/12/24 10:35 units/ Sodium Chloride IV CONT .Q9H6M MORA Protocol 11 UNITS/HR Dextrose 1,000 mls @ 100 mls/hr 05/12/24 10:21 Dextrose 5% 1,000 Ml IVPB PRN PRN Hypoglycemia Protocol Perflutren Lipid Microsphere 0 ml 05/12/24 10:12 Perflutren Lipid Microspheres 1.5 Ml Vial Diluted To 10 Ml Total Volume IV PUSH 05/15/24 10:13 ONCE PRN adequate visualization Protocol Ticagrelor 90 mg 05/12/24 21:00 Ticagrelor 90 Mg Tablet PO Q12HR [facility] Labs 05/12/24 07:30 05/12/24 07:30 Labs: Laboratory Results - last 24 hr 05/12/24 07:30 WBC 12.5 H RBC 5.27 Hgb 16.0 Hct 47.8 MCV 90.7 MCH 30.4 MCHC 33.5 RDW 12.4 Plt Count 301 MPV 10.2 Immature Gran % (Auto) 0.6 H Neut % (Auto) 83.4 H Lymph % (Auto) 12.4 L Ralls % (Auto) 3.3 Eos % (Auto) 0.1 Baso % (Auto) 0.2 Lymph # (Auto) 1.55 Ralls # (Auto) 0.4 Eos # (Auto) 0.0 Baso # (Auto) 0.0 Abs Immat Gran (auto) 0.07 H Absolute Neuts (auto) 10.5 H Absolute Nucleated RBC 0.000 Nucleated RBC % 0.0 PT 13.1 INR 1.0 APTT 23.3 Sodium 136 L Potassium 4.3 Chloride 96 L Carbon Dioxide 20 L Anion Gap 20 H BUN 19 Creatinine 1.10 Estim Creat Clear Calc 82 Estimated GFR > 60 Glucose 530 H* Hemoglobin A1c 12.1 H Calcium 8.9 Total Bilirubin 1.0 AST 51 ALT 36 Alkaline Phosphatase 89 Troponin I 1.540 H* Total Protein 8.0 Albumin 4.7 Triglycerides 219 H Cholesterol 222 H LDL Cholesterol Direct 148 HDL Direct 36 Lipase 71 Beta-Hydroxybutyrate/Acetoacetate 2.79 H ASA Classification/Sedation ASA Classification/Sedation ASA Class: IV Emergent: Yes Risks: Risks, benefits and alternatives explained and patient/family accepted plan for sedation. Patient re-evaluated immediately prior to sedation.
--- NOTE | 2024-05-12 10:25 | P.PCNCC_ITS ---
Cardiac Cath Procedure Note Date of procedure:: 05/12/24 Performing physician:: CATHETERIZATION LABORATORY REPORT Procedure Date: 05/12/2024 Academic Support Assistant: Nader Rondon M.D., [facility]? Referring Physician: Savanna Chacon M.D. ([facility]) ? Anesthesia: Versed and Fentanyl were ordered and given in my presence at 08:28, procedure ended at 09:56. Supervision of nurse monitored moderate sedation with Versed and Fentanyl was provided for 88 minutes. Total of Versed 1mg and Fentanyl 75mcg were administered by the Corrections Lieutenant RN Tai Syed. Pre-op Diagnosis: STEMI Post-op Diagnosis: 1. Multivessel coronary artery disease with culprit being complete 100% occlusion of the proximal LAD s/p PCI with YOUNG x 1. 2. Significantly elevated left ventricular end-diastolic pressure of 49mmHg Procedure(s): 1. Moderate sedation 2. Ultrasound-guided access of the right radial artery 3. Coronary angiography 4. Left heart cath 5. IVUS of the LAD 6. PCI of the proximal LAD with YOUNG x 1 Access Site: Right radial artery Brief History and Clinical Indications: Patient is a 59 year old male referred for emergent cardiac catheterization for STEMI. All risks, benefits and alternatives to left heart catheterization with or without percutaneous coronary intervention was discussed at length with the patient. Risk of complications including but not limited to bleeding, infection, arrhythmia, stroke, worsening kidney function, blood loss, groin hematoma, limb loss, emergency coronary artery bypass grafting, and even were discussed with the patient and all questions were answered. The patient understood and wished to proceed. Time out called, patient name, date of , medical record number, allergies, procedure performed, identify Academic Support Assistant, patient and staff member concurred with accurate data, procedure carried on. Findings: LEFT HEART CATHETERIZATION FINDINGS: 1. Left main: The distal left main has 30-40% disease. 2. Left anterior descending: The proximal LAD is 100% occluded, at the bifurc ation of a diagonal branch. The diagonal branch has diffuse disease with severe stenosis in the distal portion. 3. Left circumflex: The left circumflex artery has severe diffuse disease in the mid to distal portion. 4. Right coronary artery: The RCA is the dominant vessel. The RCA has severe diffuse disease. 5. Left ventricle: A. End-diastolic pressure 49 mmHg. B. LV gram deferred. C. No significant gradient across aortic valve on catheter pullback. Description of Procedure and PCI: Patient transferred to matlab developer room. Prepped and draped in usual sterile fashion. 2% lidocaine injected subcutaneously in right wrist area. 22-gauge venipuncture catheter used to access the right radial artery under ultrasound guidance. 6-FR slender sheath placed in right radial artery. Nitroglycerine and Verapamil were given intraarterial through the sheath. Versacore wire advanced under fluoroscopy 5F Tig 4 diagnostic catheter engaged Left Main Coronary Artery. 5F Tig 4 diagnostic catheter engaged Right Coronary Artery Multiple orthogonal angiogram obtained and reviewed Angiomax was used for anticoagulation. 6F CLS 3.0 guide catheter was used to intubate the left main. 0.014 [place] coronary wire was passed in to the distal LAD. The lesion was pre-dilated with a 2.5 mm x 15 mm balloon inflated to high MARY. Flow was restored to the distal LAD with balloon angioplasty. IVUS catheter advanced, however, would not completely cross the lesion. IVUS showed a concentric calcified lesion. Intracoronary NTG was administered Further balloon angioplasty done with a 3.0mm x 10mm balloon, Scoreflex 3.0mm x 10mm balloon and an NC 3.0mm x 8mm balloon given the calcific disease. Intracoronary NTG was administered A 3.5 mm x 18mm Orsiro YOUNG was successfully deployed into proximal LAD. The stent was post-dilated with a 3.5mm x 8mm NC balloon inflated to high AMRY. Intracoronary NTG was administered Coronary wire and guide-catheter were removed Pre-procedure - BLANCA 0 flow Post-procedure - BLANCA 3 flow No angiographic complications identified. 5F Pigtail diagnostic catheter crossed aortic valve to obtain LVEDP, LV a ngiogram deferred. As LVEDP was significantly high, he was given Lasix 40mg IV x 1. While pigtail catheter was in the LV, patient did go into VT. We shocked him once with latter day of sinus rhythm. Blood pressures remained stable. Hemostasis was achieved by application of TR band. Patient was given boluses of Phenylephrine and was on low dose Levophed drip during the case, however, Levophed was weaned off prior to completion of the case. Disposition: ICU Plan: 1. The patient will be admitted to the ICU 2. Loaded with ASA 324mg x 1 in the ED. Continue ASA 81mg once daily. 3. Loaded with Brilinta 180mg x 1 prior to start of cath, however, he vomiting during the cath. Therefore, re-loaded with Brilinta 180mg x 1 as a precaution. 4. LVEDP 49mmHg in the matlab developer, given Lasix 40mg x 1 on matlab developer table. 5. Start high intensity statin. 6. Echocardiogram. 7. LAD STEMI in the setting of DKA (did not realize he was in DKA until after completion of cath when we saw the labs). S/p YOUNG x 1 to the LAD. Has significant disease in the RCA, LCX, and Diagonal branch, will need to determine revascularization plan once he recovers from this event. Given MVCAD and diabetes mellitus, should undergo surgical evaluation for CABG, however, I am concerned he may not have good targets. 8. Continue aggressive medical therapy and risk factor modification. ? Nader Rondon M.D. Interventional Cardiology
--- NOTE | 2024-05-12 10:30 | ADMGEN ---
This patient, Bert Morales, was admitted to Intensive Care Unit-2. Patient/family oriented to hospital policies and general routines including ID bracelet, bed and alarms, visiting hours, pain management, procedures, bathroom and other care routines, personal items, smoking policy, room service/diet, and visiting hours. Information on how to activate the Rapid Response Team has been discussed. Patient/Family are encouraged to report perceived risks to care and to ask questions if they do not understand what they are told or what they should do.
[2024-05-12] MEDS: ATORVASTATIN 40 MG TABLET 80 MG PO (10:43)
[2024-05-12] MEDS: INSULIN HUMAN REGULAR (*BKC) 100 UNITS in SODIUM CHLORIDE 0.9% IV 99 ML 11 UNITS IV CONT (10:44)
[2024-05-12 10:48] LABS: Glucose Point of Care 499 mg/dl (65-105)
[2024-05-12] MEDS: INSULIN HUMAN REGULAR (*BKC) 100 UNITS/ML 10 UNITS IV PUSH (11:01)
[2024-05-12] MEDS: PERFLUTREN LIPID MICROSPHERES 1.5 ML VIAL DILUTED TO 10 ML TOTAL VOLUME IV PUSH (11:10)
[2024-05-12 11:22] LABS: Anion Gap 19 mmol/L (4-12); Blood Urea Nitrogen 19 mg/dL (9-20); Calcium 8.4 mg/dL (8.4-10.2); Carbon Dioxide 15 mmol/L (22-30); Chloride 98 mmol/L (98-107); Estimated CRCL calculation 82 ml/min; Estimated Glomerular Filt Rate > 60; Glucose 576 mg/dL (65-110); Magnesium 2.5 mg/dL (1.6-2.3); Phosphorus 4.9 mg/dL (2.5-4.5); Potassium 5.8 mmol/L (3.4-5.0); Sodium 132 mmol/L (137-145)
[2024-05-12 11:30] LABS: Troponin I > 80.000 ng/mL (0.000-0.034)
--- NOTE | 2024-05-12 11:34 | IVDEFINITY ---
Prior to administration of IV Definity the patient was educated on the risks and benefits of the imaging enhancing agent including potential adverse side effects. The patient verbalized understanding. Allergies were verified. No exclusion criteria were identified and at least one of the following inclusion criteria were met: 1) physician request, 2) patient technically difficult to image (per the [place] [employer] guidelines of two or more segments not discernable within the apical view), or 3) questionable left ventricular function. ?
[2024-05-12 11:45] LABS: Glucose Point of Care > 500 mg/dl (65-105)
[2024-05-12] MEDS: LIDOCAINE HCL 1% PF INJ 5 ML VIAL INFILTRATE (12:35)
--- NOTE | 2024-05-12 12:54 | PCDIET ---
Nutrition note: DKA admission consult. Not able to see patient for education today. 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 NPO for DKA today. Further assessment and education to follow.
[2024-05-12 13:08] LABS: Glucose Point of Care 441 mg/dl (65-105)
[2024-05-12] MEDS: CENTRAL LINE FLUSH 10 ML IV PUSH ×2 (13:08→22:12)
[2024-05-12 14:07] LABS: Glucose Point of Care 400 mg/dl (65-105)
[2024-05-12 14:21] LABS: Anion Gap 14 mmol/L (4-12); Blood Urea Nitrogen 21 mg/dL (9-20); Calcium 8.7 mg/dL (8.4-10.2); Carbon Dioxide 24 mmol/L (22-30); Chloride 100 mmol/L (98-107); Estimated CRCL calculation 76 ml/min; Estimated Glomerular Filt Rate > 60; Glucose 378 mg/dL (65-110); Potassium 4.3 mmol/L (3.4-5.0); Sodium 138 mmol/L (137-145)
[2024-05-12 14:36] LABS: Troponin I > 80.000 ng/mL (0.000-0.034)
[2024-05-12 14:59] LABS: Glucose Point of Care 325 mg/dl (65-105)
[2024-05-12 15:47] LABS: Glucose Point of Care 266 mg/dl (65-105)
[2024-05-12] MEDS: INSULIN HUMAN REGULAR (*BKC) 100 UNITS in SODIUM CHLORIDE 0.9% IV 99 ML 22 UNITS IV CONT (16:16)
[2024-05-12 16:49] LABS: Glucose Point of Care 230 mg/dl (65-105)
[2024-05-12 18:18] LABS: Glucose Point of Care 185 mg/dl (65-105)
[2024-05-12 18:27] LABS: Add Urine Microscopic? YES; Appearance Urine Clear (Clear); Bacteria Urine None Seen /hpf; Bilirubin Urine Negative (Negative); Blood Urine 2+ (Negative); Color Urine Yellow (Yellow); Glucose Urine UA 3+ mg/dL (Negative); Ketones Urine 1+ mg/dL (Negative); Leukocyte Esterase Ur Negative LEU/UL (Negative); Nitrate Urine Negative (Negative); Non Pathogenic Casts 0-2; Protein Urine 1+ mg/dL (Negative); Specific Grav Ur > 1.045 (1.001-1.035); Squamous Epithelial Cell Urine None Seen /hpf (Few); Urobilinogen Urine 0.2 mg/dL (<2.0); WBC Urine 0-5 /hpf (0-3); pH Urine 5.5 (5.0-9.0)
[2024-05-12 18:34] LABS: Anion Gap 9 mmol/L (4-12); Blood Urea Nitrogen 22 mg/dL (9-20); Calcium 9.1 mg/dL (8.4-10.2); Carbon Dioxide 28 mmol/L (22-30); Chloride 103 mmol/L (98-107); Estimated CRCL calculation 66 ml/min; Estimated Glomerular Filt Rate 52; Glucose 183 mg/dL (65-110); Potassium 3.8 mmol/L (3.4-5.0); Sodium 140 mmol/L (137-145)
[2024-05-12 18:49] LABS: Glucose Point of Care 157 mg/dl (65-105)
[2024-05-12 19:22] LABS: Glucose Point of Care 148 mg/dl (65-105)
[2024-05-12 19:33] LABS: MRSA (PCR) NOT DETECTED (NOT DETECTE)
[2024-05-12 20:11] LABS: Glucose Point of Care 147 mg/dl (65-105)
[2024-05-12 20:55] LABS: Glucose Point of Care 177 mg/dl (65-105)
[2024-05-12] MEDS: TICAGRELOR 90 MG TABLET PO (21:26)
[2024-05-12 22:01] LABS: Glucose Point of Care 214 mg/dl (65-105)
[2024-05-12 23:01] LABS: Glucose Point of Care 204 mg/dl (65-105)
[2024-05-13] VITALS (18 sets, daily range): BP systolic 97–109; BP diastolic 70–87; PULSE 87–101; RESP 15–20; TEMP 36.6–37.6; O2SAT 94–100
[2024-05-13 00:03] LABS: Glucose Point of Care 225 mg/dl (65-105)
[2024-05-13 00:53] LABS: Glucose Point of Care 235 mg/dl (65-105)
[2024-05-13 02:00] LABS: Glucose Point of Care 248 mg/dl (65-105)
[2024-05-13 02:59] LABS: Glucose Point of Care 240 mg/dl (65-105)
[2024-05-13 03:56] LABS: Glucose Point of Care 250 mg/dl (65-105)
[2024-05-13 05:06] LABS: Glucose Point of Care 220 mg/dl (65-105)
[2024-05-13 05:56] LABS: Alanine Aminotransferase 104 U/L (6-50); Albumin Level 4.1 g/dL (3.5-5.1); Alkaline Phosphatase 74 U/L (38-126); Anion Gap 11 mmol/L (4-12); Aspartate Amino Transferase 501 U/L (17-59); Blood Urea Nitrogen 30 mg/dL (9-20); Calcium 8.8 mg/dL (8.4-10.2); Carbon Dioxide 24 mmol/L (22-30); Chloride 103 mmol/L (98-107); Estimated CRCL calculation 71 ml/min; Estimated Glomerular Filt Rate 57; Glucose 226 mg/dL (65-110); Magnesium 2.9 mg/dL (1.6-2.3); Potassium 4.3 mmol/L (3.4-5.0); Sodium 138 mmol/L (137-145)
[2024-05-13] MEDS: CENTRAL LINE FLUSH 10 ML IV PUSH ×3 (06:22→20:49)
[2024-05-13 06:51] LABS: Glucose Point of Care 221 mg/dl (65-105)
--- NOTE | 2024-05-13 07:00 | ECG_ITS ---
Test Date: 2024-05-13 07:42:46 Measurements Intervals [place] Rate: 96 P: 48 LA: 147 QRS: 91 QRSD: 150 T: -28 QT: 388 QTc: 490 Interpretive Statements SINUS RHYTHM POSSIBLE LEFT ATRIAL ENLARGEMENT [-0.1mV P WAVE IN V1/V2] RIGHT BUNDLE BRANCH BLOCK [120+ ms QRS DURATION, UPRIGHT V1, 40+ ms S IN I/aVL/V4/V5/V6] ANTEROSEPTAL MYOCARDIAL INFARCTION [40+ ms Q WAVE IN V1-V4], PROBABLY RECENT ST ELEVATION, CONSIDER INFERIOR INJURY [MARKED ST ELEVATION W/O NORMALLY INFLECTED T WAVE IN II/aVF] ACUTE NV WARNING: DATA QUALITY MAY AFFECT INTERPRETATION ABNORMAL ECG Electronically Signed On 05-13-2024 13:16:10 CDT by Dorian Whitten M.D.
[2024-05-13] MEDS: ATORVASTATIN 40 MG TABLET 80 MG PO (08:04)
[2024-05-13] MEDS: ENOXAPARIN 40 MG/0.4 ML SYRINGE SUB-Q (08:05)
[2024-05-13] MEDS: TICAGRELOR 90 MG TABLET PO ×2 (08:05→20:49)
[2024-05-13] MEDS: ASPIRIN 81 MG ENTERIC TABLET PO (08:05)
[2024-05-13 08:06] LABS: Glucose Point of Care 238 mg/dl (65-105)
[2024-05-13] MEDS: INSULIN GLARGINE (*BKC) 100 UNITS/ML 20 UNITS SUB-Q (08:06)
[2024-05-13] MEDS: INSULIN ASPART (*BKC) 100 UNITS/ML SUB-Q ×7 (08:06→20:48)
[2024-05-13 08:11] LABS: Basophils Percent Auto 0.2 % (0.2-1.2); Eosinophils Percent Auto 0.1 % (0-4.4); Hematocrit 41.9 % (42.0-52.0); Immature Granulocyte Percent A 0.6 % (0-0.5); Lymphocytes Absolute Auto 2.03 K/mm3 (0.9-3.2); Lymphocytes Percent Auto 11.2 % (18.3-44.2); Mean Corpuscular HGB Conc 33.4 g/dl (32-36); Mean Corpuscular Hemoglobin 30.8 pg (26-34); Mean Corpuscular Volume 92.1 fl (80-100); Mean Platelet Volume 10.5 fl (7.4-10.4); Monocytes Absolute Auto 1.2 K/mm3 (0.1-0.6); Monocytes Percent Auto 6.5 % (2.6-8.5); Neutrophils Absolute Auto 14.8 K/mm3 (1.3-6.7); Neutrophils Percent Auto 81.4 % (45.5-73.1); Platelet Count Result 265 k/mm3 (150-375); Red Blood Count 4.55 M/mm3 (4.6-6.20); Red Cell Distribution Width 13.1 % (11.5-14.5); White Blood Count 18.1 K/mm3 (4.5-10.0)
--- NOTE | 2024-05-13 08:45 | P.PNINT_ITS ---
Progress Note: A&P Assessment and Plan (1) ST elevation (STEMI) myocardial infarction: Code(s): I21.3 - ST elevation (STEMI) myocardial infarction of unspecified site Status: Acute Assessment and Plan: Anterior STEMI status post cardiac catheterization 1. Multivessel coronary artery disease with culprit being complete 100% occlusion of the proximal LAD s/p PCI with YOUNG x 1. 2. Significantly elevated left ventricular end-diastolic pressure of 49mmHg Completed Angiomax infusion at this time Continue Aspirin Brilinta statin Feel defer to Cardiology regarding resumption of beta-robinson and Chin which were initially not started due to hypotension Echo as below Continue campus monitor Patient now chest pain-free and asymptomatic. Advance diet (2) Diabetic ketoacidosis: Code(s): E11.10 - Type 2 diabetes mellitus with ketoacidosis without coma Status: Acute Assessment and Plan: Patient presented with DKA but due to STEMI was not initiated any treatment in the ER. Patient was started on Insulin infusion and serial labs were done Anion gap has closed and patient has clinically improved Transition to subcutaneous insulin Advance diet Due to elevated LVEDP and cardiomyopathy he did not get any fluids. Patient did receive Lasix in pharmaceutical laboratory technician Consult nurse educator and dietitian (3) Cardiomyopathy: Code(s): I42.9 - Cardiomyopathy, unspecified Status: Acute Assessment and Plan: Elevated LVEDP during cardiac catheterization. Received Lasix in the cath Echo Summary 1. Left ventricular chamber dimension is moderately enlarged. 2. Left ventricular systolic function is severely reduced, estimated at 15- 20%. 3. The left ventricular diastolic function is grade I diastolic dysfunction. 4. Right ventricular systolic function is normal. 5. Left atrial chamber dimension is mildly enlarged. 6. There is mild mitral valve regurgitation. 7. There is mild tricuspid valve regurgitation. (4) Hyperlipidemia: Code(s): E78.5 - Hyperlipidemia, unspecified Status: Acute Assessment and Plan: Statin started (5) Hypertension: Code(s): I10 - Essential (primary) hypertension Status: Acute Assessment and Plan: Blood pressure was low during the procedure Improved now Monitor Hold antihypertensives at this time (6) Nausea & vomiting: Code(s): R11.2 - Nausea with vomiting, unspecified Status: Acute Assessment and Plan: Secondary to STEMI and DKA P.r.n. Zofran Now resolved (7) Ventricular fibrillation: Code(s): I49.01 - Ventricular fibrillation Status: Acute Assessment and Plan: Patient had 1 VFib episode during cardiac catheterization requiring DC defibrillation likely secondary be perfusion or irritation from the wire No recurrence. Continue telemetry Treatment if it recurs Plan DVT prophylaxis -received heparin with the procedure. Start Lovenox from tomorrow. Nutrition -diabetic diet Code Status - Full Code patient wants her son Kelton to be decision maker on his behalf if he is unable to do so himself. Incentive spirometry, up in chair Transfer out of ICU today Subjective Date/time seen: 05/13/24 Overnight events reviewed. Afebrile On nasal cannula Feels much better. Denies any chest pain or shortness of breath. Nausea has resolved. No vomiting over last 12 hours. Patient denies fever, , cough, abdominal pain,, diarrhea, headache or constipation. All other systems were reviewed and were negative Continues to be on insulin infusion Other Vitals acceptable Review of Systems Review of Systems: All systems reviewed & are unremarkable except as noted in HPI and below (HPI) Exam Narrative: General: Pt is alert awake and in NAD Lungs/Chest: Trachea central Clear BS B/L, No crackles or wheezing. Cardiac: RRR. Normal S1 S2. No murmurs Circulation: Bilateral dorsalis pedis pulses are intact and symmetrical. Abdomen: Normal bowel sounds. Obese. Soft. NT. ND. Extremities: No clubbing, cyanosis or edema. Warm, TR band on right wrist is now off cap refill and the right hand. Radial pulses palpable : Moran in place Neurologic: Follows commands. Moves all 4 extremities PERRL AO x3 Skin: No Rash Objective Data Vital Signs Vital Signs: Vital Signs - 24 hr 05/12/24 10:30 05/12/24 11:19 05/12/24 10:30 Temperature 36.3 C L Pulse Rate 100 100 100 Respiratory Rate 23 H 23 H 23 H Blood Pressure 99/70 L 109/81 99/70 L Pulse Oximetry 100 100 100 Oxygen Delivery Oxygen Flow Rate 05/12/24 10:45 05/12/24 11:31 05/12/24 11:49 Temperature 36.7 C Pulse Rate 102 H 103 H 116 H Respiratory Rate 24 H 21 H 28 H Blood Pressure 126/105 H 116/77 108/92 H Pulse Oximetry 99 100 99 Oxygen Delivery Oxygen Flow Rate 05/12/24 12:00 05/12/24 12:00 05/12/24 12:31 Temperature Pulse Rate 107 H 107 H 94 Respiratory Rate 24 H 18 Blood Pressure 108/92 H 100/78 Pulse Oximetry 99 98 Oxygen Delivery Oxygen Flow Rate 05/12/24 13:31 05/12/24 14:04 05/12/24 12:00 Temperature Pulse Rate 95 98 107 H Respiratory Rate 15 16 24 H Blood Pressure 104/80 Pulse Oximetry 98 98 99 Oxygen Delivery Nasal Cannula Oxygen Flow Rate 3 05/12/24 14:00 05/12/24 14:15 05/12/24 14:30 Temperature Pulse Rate 98 97 97 Respiratory Rate 15 21 H Blood Pressure 99/79 L Pulse Oximetry 98 98 Oxygen Delivery Oxygen Flow Rate 05/12/24 15:00 05/12/24 15:31 05/12/24 16:00 Temperature Pulse Rate 96 98 94 Respiratory Rate 25 H 12 Blood Pressure 118/96 H 117/89 Pulse Oximetry 98 98 Oxygen Delivery Oxygen Flow Rate 05/12/24 16:00 05/12/24 16:31 05/12/24 16:00 Temperature 37.7 C H Pulse Rate 94 97 94 Respiratory Rate 24 H 23 H 24 H Blood Pressure 111/82 101/82 Pulse Oximetry 97 95 97 Oxygen Delivery Nasal Cannula Oxygen Flow Rate 2 05/12/24 18:00 05/12/24 18:00 05/12/24 20:09 Temperature 37.7 C H Pulse Rate 95 95 99 Respiratory Rate 22 H 22 H Blood Pressure 118/75 101/76 Pulse Oximetry 98 94 Oxygen Delivery Oxygen Flow Rate 05/12/24 20:00 05/12/24 20:00 05/12/24 22:05 Temperature 37.6 C Pulse Rate 99 99 96 Respiratory Rate 16 20 Blood Pressure 108/74 Pulse Oximetry 98 99 Oxygen Delivery Room Air Oxygen Flow Rate 05/12/24 22:00 05/12/24 23:30 05/12/24 23:31 Temperature Pulse Rate 96 93 93 Respiratory Rate 22 H Blood Pressure Pulse Oximetry 99 Oxygen Delivery Nasal Cannula Oxygen Flow Rate 2 05/13/24 00:05 05/13/24 02:00 05/13/24 02:00 Temperature 37.6 C Pulse Rate 91 88 88 Respiratory Rate 20 20 Blood Pressure 97/78 L 103/76 Pulse Oximetry 97 100 Oxygen Delivery Oxygen Flow Rate 05/13/24 03:23 05/13/24 03:23 05/13/24 03:24 Temperature Pulse Rate 91 87 87 Respiratory Rate 20 20 Blood Pressure Pulse Oximetry 99 99 Oxygen Delivery Nasal Cannula Oxygen Flow Rate 2 05/13/24 04:00 05/13/24 06:00 05/13/24 06:00 Temperature 37.3 C 37.2 C Pulse Rate 91 94 94 Respiratory Rate 18 18 Blood Pressure 104/79 99/82 L Pulse Oximetry 100 98 Oxygen Delivery Oxygen Flow Rate Intake/Output Intake/Output: Intake & Output 05/10/24 05/11/24 05/12/24 05/13/24 23:59 23:59 23:59 23:59 Intake Total 161.0 207.2 Output Total 1900 150 Balance -1739.0 57.2 Meds/Results Medications: Active Medications Generic Name Dose Route Start Last Admin Trade Name Freq PRN Reason Stop Dose Admin Aspirin 81 mg 05/13/24 09:00 05/13/24 08:05 Aspirin 81 Mg Enteric Tablet PO 81 mg QAM MORA Administration Atorvastatin Calcium 80 mg 05/12/24 10:10 05/13/24 08:04 Atorvastatin 40 Mg Tablet PO 80 mg DAILY MORA Administration Dextrose 12.5 gm 05/12/24 10:21 Dextrose 50% 25 Gm/50 Ml Syringe IV PUSH PRN PRN Hypoglycemia Protocol Enoxaparin Sodium 40 mg 05/13/24 09:00 05/13/24 08:05 Enoxaparin 40 Mg/0.4 Ml Syringe SUB-Q 40 mg DAILY MORA Administration Glucagon 1 mg 05/12/24 10:21 Glucagon For Inj 1 Mg Vial IM PRN PRN Hypoglycemia Protocol Glucose 15 gm 05/12/24 10:21 Glucose Oral Gel 15 Gm Of Glucse In 37.5 Gm Tube PO PRN PRN Hypoglycemia Protocol Dextrose 1,000 mls @ 100 mls/hr 05/12/24 10:21 Dextrose 5% 1,000 Ml IVPB PRN PRN Hypoglycemia Protocol Insulin Aspart 5 units 05/13/24 08:00 05/13/24 08:06 Insulin Aspart (*Bkc) 100 Units/Ml SUB-Q 5 units TIDWM MORA Administration Insulin Aspart 3 - 6 units 05/13/24 08:00 05/13/24 08:08 Insulin Aspart (*Bkc) 100 Units/Ml SUB-Q 3 units TIDWM MORA Administration Protocol Insulin Aspart 1 - 3 units 05/13/24 21:00 Insulin Aspart (*Bkc) 100 Units/Ml SUB-Q HS [facility] Protocol Insulin Glargine 20 units 05/13/24 09:00 05/13/24 08:06 Insulin Glargine (*Bkc) 100 Units/Ml SUB-Q 20 units QAM MORA Administration Ondansetron HCl 4 mg 05/12/24 10:54 Ondansetron Inj 4 Mg/2 Ml Vial IV PUSH Q4H PRN Nausea And Vomiting Sodium Chloride 20 ml 05/12/24 13:03 Central Line Flush IV PUSH PRN PRN after blood draws Sodium Chloride 10 ml 05/12/24 13:03 Central Line Flush IV PUSH PRN PRN with TPN bag changes Sodium Chloride 10 ml 05/12/24 14:00 05/13/24 06:22 Central Line Flush IV PUSH 10 ml Q8HR MORA Administration Ticagrelor 90 mg 05/12/24 21:00 05/13/24 08:05 Ticagrelor 90 Mg Tablet PO 90 mg Q12HR MORA Administration Radiology Results: ITS Impressions Chest X-Ray 05/12/24 13:10 IMPRESSION: 1. PICC tip in the superior vena cava. Labs Labs: Laboratory Results - last 24 hr 05/12/24 05/12/24 05/12/24 07:30 10:44 10:46 WBC RBC Hgb Hct MCV MCH MCHC RDW Plt Count MPV Immature Gran % (Auto) Neut % (Auto) Lymph % (Auto) [place] % (Auto) Eos % (Auto) Baso % (Auto) Lymph # (Auto) [place] # (Auto) Eos # (Auto) Baso # (Auto) Abs Immat Gran (auto) Absolute Neuts (auto) Absolute Nucleated RBC Nucleated RBC % Sodium 132 L Potassium 5.8 H Chloride 98 Carbon Dioxide 15 L Anion Gap 19 H BUN 19 Creatinine 1.10 Estim Creat Clear Calc 82 Estimated GFR > 60 Glucose 576 H* POC Capillary Glucose 499 H Calcium 8.4 Phosphorus 4.9 H Magnesium 2.5 H Total Bilirubin AST ALT Alkaline Phosphatase Troponin I > 80.000 H* D Total Protein Albumin Triglycerides 219 H Cholesterol 222 H LDL Cholesterol Direct 148 HDL Direct 36 Beta-Hydroxybutyrate/Acetoacetate 2.79 H Urine Color Urine Appearance Urine pH Ur Specific [place] Urine Protein Urine Glucose (UA) Urine Ketones Ur Blood (Man) Urine Nitrate Urine Bilirubin Urine Urobilinogen Leukocyte Esterase Rfl Urine RBC Urine WBC Ur Squamous Epith Cells Urine Bacteria Urine Casts Nasal MRSA (PCR) 05/12/24 05/12/24 05/12/24 11:41 13:04 13:53 WBC RBC Hgb Hct MCV MCH MCHC RDW Plt Count MPV Immature Gran % (Auto) Neut % (Auto) Lymph % (Auto) [place] % (Auto) Eos % (Auto) Baso % (Auto) Lymph # (Auto) [place] # (Auto) Eos # (Auto) Baso # (Auto) Abs Immat Gran (auto) Absolute Neuts (auto) Absolute Nucleated RBC Nucleated RBC % Sodium Potassium Chloride Carbon Dioxide Anion Gap BUN Creatinine Estim Creat Clear Calc Estimated GFR Glucose POC Capillary Glucose > 500 H* 441 H 400 H Calcium Phosphorus Magnesium Total Bilirubin AST ALT Alkaline Phosphatase Troponin I Total Protein Albumin Triglycerides Cholesterol LDL Cholesterol Direct HDL Direct Beta-Hydroxybutyrate/Acetoacetate Urine Color Urine Appearance Urine pH Ur Specific [place] Urine Protein Urine Glucose (UA) Urine Ketones Ur Blood (Man) Urine Nitrate Urine Bilirubin Urine Urobilinogen Leukocyte Esterase Rfl Urine RBC Urine WBC Ur Squamous Epith Cells Urine Bacteria Urine Casts Nasal MRSA (PCR) 05/12/24 05/12/24 05/12/24 13:56 14:56 15:43 WBC RBC Hgb Hct MCV MCH MCHC RDW Plt Count MPV Immature Gran % (Auto) Neut % (Auto) Lymph % (Auto) [place] % (Auto) Eos % (Auto) Baso % (Auto) Lymph # (Auto) [place] # (Auto) Eos # (Auto) Baso # (Auto) Abs Immat Gran (auto) Absolute Neuts (auto) Absolute Nucleated RBC Nucleated RBC % Sodium 138 Potassium 4.3 Chloride 100 Carbon Dioxide 24 Anion Gap 14 H BUN 21 H Creatinine 1.20 Estim Creat Clear Calc 76 Estimated GFR > 60 Glucose 378 H POC Capillary Glucose 325 H 266 H Calcium 8.7 Phosphorus Magnesium Total Bilirubin AST ALT Alkaline Phosphatase Troponin I > 80.000 H* Total Protein Albumin Triglycerides Cholesterol LDL Cholesterol Direct HDL Direct Beta-Hydroxybutyrate/Acetoacetate Urine Color Urine Appearance Urine pH Ur Specific [place] Urine Protein Urine Glucose (UA) Urine Ketones Ur Blood (Man) Urine Nitrate Urine Bilirubin Urine Urobilinogen Leukocyte Esterase Rfl Urine RBC Urine WBC Ur Squamous Epith Cells Urine Bacteria Urine Casts Nasal MRSA (PCR) 05/12/24 05/12/24 05/12/24 16:44 18:01 18:05 WBC RBC Hgb Hct MCV MCH MCHC RDW Plt Count MPV Immature Gran % (Auto) Neut % (Auto) Lymph % (Auto) [place] % (Auto) Eos % (Auto) Baso % (Auto) Lymph # (Auto) [place] # (Auto) Eos # (Auto) Baso # (Auto) Abs Immat Gran (auto) Absolute Neuts (auto) Absolute Nucleated RBC Nucleated RBC % Sodium 140 Potassium 3.8 Chloride 103 Carbon Dioxide 28 Anion Gap 9 BUN 22 H Creatinine 1.40 H Estim Creat Clear Calc 66 Estimated GFR 52 L Glucose 183 H POC Capillary Glucose 230 H 185 H Calcium 9.1 Phosphorus Magnesium Total Bilirubin AST ALT Alkaline Phosphatase Troponin I Total Protein Albumin Triglycerides Cholesterol LDL Cholesterol Direct HDL Direct Beta-Hydroxybutyrate/Acetoacetate Urine Color Urine Appearance Urine pH Ur Specific [place] Urine Protein Urine Glucose (UA) Urine Ketones Ur Blood (Man) Urine Nitrate Urine Bilirubin Urine Urobilinogen Leukocyte Esterase Rfl Urine RBC Urine WBC Ur Squamous Epith Cells Urine Bacteria Urine Casts Nasal MRSA (PCR) Not detected 05/12/24 05/12/24 05/12/24 18:13 18:45 19:19 WBC RBC Hgb Hct MCV MCH MCHC RDW Plt Count MPV Immature Gran % (Auto) Neut % (Auto) Lymph % (Auto) [place] % (Auto) Eos % (Auto) Baso % (Auto) Lymph # (Auto) [place] # (Auto) Eos # (Auto) Baso # (Auto) Abs Immat Gran (auto) Absolute Neuts (auto) Absolute Nucleated RBC Nucleated RBC % Sodium Potassium Chloride Carbon Dioxide Anion Gap BUN Creatinine Estim Creat Clear Calc Estimated GFR Glucose POC Capillary Glucose 157 H 148 H Calcium Phosphorus Magnesium Total Bilirubin AST ALT Alkaline Phosphatase Troponin I Total Protein Albumin Triglycerides Cholesterol LDL Cholesterol Direct HDL Direct Beta-Hydroxybutyrate/Acetoacetate Urine Color Yellow Urine Appearance Clear Urine pH 5.5 Ur Specific [place] > 1.045 H Urine Protein 1+ H Urine Glucose (UA) 3+ H Urine Ketones 1+ H Ur Blood (Man) 2+ H Urine Nitrate Negative Urine Bilirubin Negative Urine Urobilinogen 0.2 Leukocyte Esterase Rfl Negative Urine RBC 6-10 H Urine WBC 0-5 Ur Squamous Epith Cells None seen Urine Bacteria None seen Urine Casts 0-2 Nasal MRSA (PCR) 05/12/24 05/12/24 05/12/24 20:08 20:53 21:58 WBC RBC Hgb Hct MCV MCH MCHC RDW Plt Count MPV Immature Gran % (Auto) Neut % (Auto) Lymph % (Auto) [place] % (Auto) Eos % (Auto) Baso % (Auto) Lymph # (Auto) [place] # (Auto) Eos # (Auto) Baso # (Auto) Abs Immat Gran (auto) Absolute Neuts (auto) Absolute Nucleated RBC Nucleated RBC % Sodium Potassium Chloride Carbon Dioxide Anion Gap BUN Creatinine Estim Creat Clear Calc Estimated GFR Glucose POC Capillary Glucose 147 H 177 H 214 H Calcium Phosphorus Magnesium Total Bilirubin AST ALT Alkaline Phosphatase Troponin I Total Protein Albumin Triglycerides Cholesterol LDL Cholesterol Direct HDL Direct Beta-Hydroxybutyrate/Acetoacetate Urine Color Urine Appearance Urine pH Ur Specific [place] Urine Protein Urine Glucose (UA) Urine Ketones Ur Blood (Man) Urine Nitrate Urine Bilirubin Urine Urobilinogen Leukocyte Esterase Rfl Urine RBC Urine WBC Ur Squamous Epith Cells Urine Bacteria Urine Casts Nasal MRSA (PCR) 05/12/24 05/12/24 05/13/24 22:56 23:52 00:51 WBC RBC Hgb Hct MCV MCH MCHC RDW Plt Count MPV Immature Gran % (Auto) Neut % (Auto) Lymph % (Auto) [place] % (Auto) Eos % (Auto) Baso % (Auto) Lymph # (Auto) [place] # (Auto) Eos # (Auto) Baso # (Auto) Abs Immat Gran (auto) Absolute Neuts (auto) Absolute Nucleated RBC Nucleated RBC % Sodium Potassium Chloride Carbon Dioxide Anion Gap BUN Creatinine Estim Creat Clear Calc Estimated GFR Glucose POC Capillary Glucose 204 H 225 H 235 H Calcium Phosphorus Magnesium Total Bilirubin AST ALT Alkaline Phosphatase Troponin I Total Protein Albumin Triglycerides Cholesterol LDL Cholesterol Direct HDL Direct Beta-Hydroxybutyrate/Acetoacetate Urine Color Urine Appearance Urine pH Ur Specific [place] Urine Protein Urine Glucose (UA) Urine Ketones Ur Blood (Man) Urine Nitrate Urine Bilirubin Urine Urobilinogen Leukocyte Esterase Rfl Urine RBC Urine WBC Ur Squamous Epith Cells Urine Bacteria Urine Casts Nasal MRSA (PCR) 05/13/24 05/13/24 05/13/24 01:56 02:54 03:54 WBC RBC Hgb Hct MCV MCH MCHC RDW Plt Count MPV Immature Gran % (Auto) Neut % (Auto) Lymph % (Auto) [place] % (Auto) Eos % (Auto) Baso % (Auto) Lymph # (Auto) [place] # (Auto) Eos # (Auto) Baso # (Auto) Abs Immat Gran (auto) Absolute Neuts (auto) Absolute Nucleated RBC Nucleated RBC % Sodium Potassium Chloride Carbon Dioxide Anion Gap BUN Creatinine Estim Creat Clear Calc Estimated GFR Glucose POC Capillary Glucose 248 H 240 H 250 H Calcium Phosphorus Magnesium Total Bilirubin AST ALT Alkaline Phosphatase Troponin I Total Protein Albumin Triglycerides Cholesterol LDL Cholesterol Direct HDL Direct Beta-Hydroxybutyrate/Acetoacetate Urine Color Urine Appearance Urine pH Ur Specific [place] Urine Protein Urine Glucose (UA) Urine Ketones Ur Blood (Man) Urine Nitrate Urine Bilirubin Urine Urobilinogen Leukocyte Esterase Rfl Urine RBC Urine WBC Ur Squamous Epith Cells Urine Bacteria Urine Casts Nasal MRSA (PCR) 05/13/24 05/13/24 05/13/24 05:01 05:32 06:49 WBC 18.1 H RBC 4.55 L Hgb 14.0 Hct 41.9 L MCV 92.1 MCH 30.8 MCHC 33.4 RDW 13.1 Plt Count 265 MPV 10.5 H Immature Gran % (Auto) 0.6 H Neut % (Auto) 81.4 H Lymph % (Auto) 11.2 L [place] % (Auto) 6.5 Eos % (Auto) 0.1 Baso % (Auto) 0.2 Lymph # (Auto) 2.03 [place] # (Auto) 1.2 H Eos # (Auto) 0.0 Baso # (Auto) 0.0 Abs Immat Gran (auto) 0.10 H Absolute Neuts (auto) 14.8 H Absolute Nucleated RBC 0.000 Nucleated RBC % 0.0 Sodium 138 Potassium 4.3 Chloride 103 Carbon Dioxide 24 Anion Gap 11 BUN 30 H Creatinine 1.30 Estim Creat Clear Calc 71 Estimated GFR 57 L Glucose 226 H POC Capillary Glucose 220 H 221 H Calcium 8.8 Phosphorus Magnesium 2.9 H Total Bilirubin 1.0 AST 501 H ALT 104 H Alkaline Phosphatase 74 Troponin I Total Protein 7.0 Albumin 4.1 Triglycerides Cholesterol LDL Cholesterol Direct HDL Direct Beta-Hydroxybutyrate/Acetoacetate Urine Color Urine Appearance Urine pH Ur Specific [place] Urine Protein Urine Glucose (UA) Urine Ketones Ur Blood (Man) Urine Nitrate Urine Bilirubin Urine Urobilinogen Leukocyte Esterase Rfl Urine RBC Urine WBC Ur Squamous Epith Cells Urine Bacteria Urine Casts Nasal MRSA (PCR) 05/13/24 07:52 WBC RBC Hgb Hct MCV MCH MCHC RDW Plt Count MPV Immature Gran % (Auto) Neut % (Auto) Lymph % (Auto) [place] % (Auto) Eos % (Auto) Baso % (Auto) Lymph # (Auto) [place] # (Auto) Eos # (Auto) Baso # (Auto) Abs Immat Gran (auto) Absolute Neuts (auto) Absolute Nucleated RBC Nucleated RBC % Sodium Potassium Chloride Carbon Dioxide Anion Gap BUN Creatinine Estim Creat Clear Calc Estimated GFR Glucose POC Capillary Glucose 238 H Calcium Phosphorus Magnesium Total Bilirubin AST ALT Alkaline Phosphatase Troponin I Total Protein Albumin Triglycerides Cholesterol LDL Cholesterol Direct HDL Direct Beta-Hydroxybutyrate/Acetoacetate Urine Color Urine Appearance Urine pH Ur Specific [place] Urine Protein Urine Glucose (UA) Urine Ketones Ur Blood (Man) Urine Nitrate Urine Bilirubin Urine Urobilinogen Leukocyte Esterase Rfl Urine RBC Urine WBC Ur Squamous Epith Cells Urine Bacteria Urine Casts Nasal MRSA (PCR)
[2024-05-13 09:11] LABS: Glucose Point of Care 322 mg/dl (65-105)
--- NOTE | 2024-05-13 11:23 | P.PNCA_ITS ---
Progress Note: A&P Assessment and Plan (1) ST elevation (STEMI) myocardial infarction: Code(s): I21.3 - ST elevation (STEMI) myocardial infarction of unspecified site Status: Acute Assessment and Plan: LAD STEMI in the setting of DKA (did not realize he was in DKA until after completion of cath). S/p YOUNG x 1 to the LAD. Has significant disease in the RCA, LCX, and Diagonal branch, will need to determine revascularization plan once he recovers from this event. Given MVCAD and diabetes mellitus, should undergo surgical evaluation for CABG, however, I am concerned he may not have good targets. Continue aspirin, Brilinta, statin. Will start low-dose beta-robinson. Given his tachycardia, will use metoprolol and given his cardiomyopathy will use long-acting metoprolol succinate to 12.5 mg p.o. daily. Up titrate as able. Obviously would like to get him on other regimen including Entresto, spironolactone, Jardiance but blood pressure will likely not allow. (2) Diabetic ketoacidosis: Code(s): E11.10 - Type 2 diabetes mellitus with ketoacidosis without coma Status: Acute Assessment and Plan: He is in DKA. Management as per ICU team and hospitalist team (3) Hypertension: Code(s): I10 - Essential (primary) hypertension Status: Acute Assessment and Plan: Will start low-dose metoprolol (4) Hyperlipidemia: Code(s): E78.5 - Hyperlipidemia, unspecified Status: Acute Assessment and Plan: Continue Atorvastatin 80mg once daily. (5) Ischemic cardiomyopathy: Code(s): I25.5 - Ischemic cardiomyopathy Status: Acute Assessment and Plan: EF 15-20%. Will start low-dose metoprolol succinate as detailed above. Add to this regimen as BP and tolerance allows. He is agreeable to a LifeVest. Will order before discharge. Subjective Date/time seen: 05/13/24 11:23 Interval history: 59-year-old presented with anterior STEMI and DKA Date of service 05/13/2024: Feels okay. Does feel tired and weak. No chest pain or shortness of breath. Review of Systems Review of Systems: All systems reviewed & are unremarkable except as noted in HPI and below Constitutional: Constitutional: Reports fatigue and Reports lethargy Eyes: Eyes: Denies blurry vision ENT: Reports Normal hearing present Cardiovascular: Cardiovascular: Denies chest pain Respiratory: Respiratory: Denies hemoptysis Gastrointestinal: Gastrointestinal: Denies abdominal pain Genitourinary: Genitourinary: Denies hematuria Musculoskeletal: Musculoskeletal: Denies joint swelling Integumentary/Breasts: Skin/Breast: Denies rash Neurologic: Denies Abnormal speech present Psychiatric: Psychiatric: Denies anxiety Endocrine: Endocrine: Denies change in body appearance Hematologic/Lymphatic: Hematologic/Lymphatic: Denies easy bleeding Allergic/Immunologic: Allergic/Immunologic: Denies GI upset with certain foods Exam Narrative: Alert oriented appears no acute distress. Appears stated age Const: General: comfortable and no acute distress HENMT: Ears: TM's normal bilaterally Face/Nose/Sinus: Normal nares present Eyes: General: appearance normal, both eyes and all related structures Sclera: sclerae normal Neck: Neck: supple and no JVD Resp: Effort & Inspection: normal respiratory effort Auscultation: clear to auscultation bilaterally Cardio: Rate: regular rate Rhythm: regular rhythm Heart sounds: no murmurs GI: Inspection: non-distended GI Palp: Yes Soft to palpation Skin: General skin exam: normal color Neuro: Speech: normal speech Extrem: General: normal to inspection Psych: Mental Status: mental status grossly normal Affect: normal affect Objective Data Vital Signs Vital Signs: Vital Signs - 24 hr 05/12/24 11:31 05/12/24 11:49 05/12/24 12:00 Temperature 36.7 C Pulse Rate 103 H 116 H 107 H Respiratory Rate 21 H 28 H Blood Pressure 116/77 108/92 H Pulse Oximetry 100 99 Oxygen Delivery Oxygen Flow Rate 05/12/24 12:00 05/12/24 12:31 05/12/24 13:31 Temperature Pulse Rate 107 H 94 95 Respiratory Rate 24 H 18 15 Blood Pressure 108/92 H 100/78 Pulse Oximetry 99 98 98 Oxygen Delivery Oxygen Flow Rate 05/12/24 14:04 05/12/24 12:00 05/12/24 14:00 Temperature Pulse Rate 98 107 H 98 Respiratory Rate 16 24 H Blood Pressure 104/80 Pulse Oximetry 98 99 Oxygen Delivery Nasal Cannula Oxygen Flow Rate 3 05/12/24 14:15 05/12/24 14:30 05/12/24 15:00 Temperature Pulse Rate 97 97 96 Respiratory Rate 15 21 H 25 H Blood Pressure 99/79 L 118/96 H Pulse Oximetry 98 98 98 Oxygen Delivery Oxygen Flow Rate 05/12/24 15:31 05/12/24 16:00 05/12/24 16:00 Temperature 37.7 C H Pulse Rate 98 94 94 Respiratory Rate 12 24 H Blood Pressure 117/89 111/82 Pulse Oximetry 98 97 Oxygen Delivery Oxygen Flow Rate 05/12/24 16:31 05/12/24 16:00 05/12/24 18:00 Temperature Pulse Rate 97 94 95 Respiratory Rate 23 H 24 H Blood Pressure 101/82 Pulse Oximetry 95 97 Oxygen Delivery Nasal Cannula Oxygen Flow Rate 2 05/12/24 18:00 05/12/24 20:09 05/12/24 20:00 Temperature 37.7 C H Pulse Rate 95 99 99 Respiratory Rate 22 H 22 H Blood Pressure 118/75 101/76 Pulse Oximetry 98 94 Oxygen Delivery Oxygen Flow Rate 05/12/24 20:00 05/12/24 22:05 05/12/24 22:00 Temperature 37.6 C Pulse Rate 99 96 96 Respiratory Rate 16 20 Blood Pressure 108/74 Pulse Oximetry 98 99 Oxygen Delivery Room Air Oxygen Flow Rate 05/12/24 23:30 05/12/24 23:31 05/13/24 00:05 Temperature 37.6 C Pulse Rate 93 93 91 Respiratory Rate 22 H 20 Blood Pressure 97/78 L Pulse Oximetry 99 97 Oxygen Delivery Nasal Cannula Oxygen Flow Rate 2 05/13/24 02:00 05/13/24 02:00 05/13/24 03:23 Temperature Pulse Rate 88 88 91 Respiratory Rate 20 Blood Pressure 103/76 Pulse Oximetry 100 Oxygen Delivery Oxygen Flow Rate 05/13/24 03:23 05/13/24 03:24 05/13/24 04:00 Temperature 37.3 C Pulse Rate 87 87 91 Respiratory Rate 20 20 18 Blood Pressure 104/79 Pulse Oximetry 99 99 100 Oxygen Delivery Nasal Cannula Oxygen Flow Rate 2 05/13/24 06:00 05/13/24 06:00 05/13/24 08:00 Temperature 37.2 C Pulse Rate 94 94 99 Respiratory Rate 18 Blood Pressure 99/82 L Pulse Oximetry 98 Oxygen Delivery Oxygen Flow Rate 05/13/24 08:00 05/13/24 08:00 05/13/24 10:00 Temperature 36.8 C Pulse Rate 99 99 99 Respiratory Rate 19 19 Blood Pressure 103/82 Pulse Oximetry 98 98 Oxygen Delivery Nasal Cannula Oxygen Flow Rate 2 05/13/24 10:00 Temperature Pulse Rate 99 Respiratory Rate 18 Blood Pressure 109/82 Pulse Oximetry 96 Oxygen Delivery Oxygen Flow Rate Intake/Output Intake/Output: Intake & Output 05/10/24 05/11/24 05/12/24 05/13/24 23:59 23:59 23:59 23:59 Intake Total 161.0 659.3 Output Total 1900 150 Balance -1739.0 509.3 Meds/Results Medications: Active Medications Generic Name Dose Route Start Last Admin Trade Name Freq PRN Reason Stop Dose Admin Aspirin 81 mg 05/13/24 09:00 05/13/24 08:05 Aspirin 81 Mg Enteric Tablet PO 81 mg QAM MORA Administration Atorvastatin Calcium 80 mg 05/12/24 10:10 05/13/24 08:04 Atorvastatin 40 Mg Tablet PO 80 mg DAILY MORA Administration Dextrose 12.5 gm 05/12/24 10:21 Dextrose 50% 25 Gm/50 Ml Syringe IV PUSH PRN PRN Hypoglycemia Protocol Enoxaparin Sodium 40 mg 05/13/24 09:00 05/13/24 08:05 Enoxaparin 40 Mg/0.4 Ml Syringe SUB-Q 40 mg DAILY MORA Administration Glucagon 1 mg 05/12/24 10:21 Glucagon For Inj 1 Mg Vial IM PRN PRN Hypoglycemia Protocol Glucose 15 gm 05/12/24 10:21 Glucose Oral Gel 15 Gm Of Glucse In 37.5 Gm Tube PO PRN PRN Hypoglycemia Protocol Dextrose 1,000 mls @ 100 mls/hr 05/12/24 10:21 Dextrose 5% 1,000 Ml IVPB PRN PRN Hypoglycemia Protocol Insulin Aspart 5 units 05/13/24 08:00 05/13/24 11:18 Insulin Aspart (*Bkc) 100 Units/Ml SUB-Q 5 units TIDWM MORA Administration Insulin Aspart 3 - 6 units 05/13/24 08:00 05/13/24 11:19 Insulin Aspart (*Bkc) 100 Units/Ml SUB-Q 5 units TIDWM MORA Administration Protocol Insulin Aspart 1 - 3 units 05/13/24 21:00 Insulin Aspart (*Bkc) 100 Units/Ml SUB-Q HS MORA Protocol Insulin Glargine 20 units 05/13/24 09:00 05/13/24 08:06 Insulin Glargine (*Bkc) 100 Units/Ml SUB-Q 20 units QAM MORA Administration Ondansetron HCl 4 mg 05/12/24 10:54 Ondansetron Inj 4 Mg/2 Ml Vial IV PUSH Q4H PRN Nausea And Vomiting Sodium Chloride 20 ml 05/12/24 13:03 Central Line Flush IV PUSH PRN PRN after blood draws Sodium Chloride 10 ml 05/12/24 13:03 Central Line Flush IV PUSH PRN PRN with TPN bag changes Sodium Chloride 10 ml 05/12/24 14:00 05/13/24 06:22 Central Line Flush IV PUSH 10 ml Q8HR MORA Administration Ticagrelor 90 mg 05/12/24 21:00 05/13/24 08:05 Ticagrelor 90 Mg Tablet PO 90 mg Q12HR MORA Administration Radiology Results: ITS Impressions Chest X-Ray 05/12/24 13:10 IMPRESSION: 1. PICC tip in the superior vena cava. Labs Labs: Laboratory Results - last 24 hr 05/12/24 05/12/24 05/12/24 10:44 11:41 13:04 WBC RBC Hgb Hct MCV MCH MCHC RDW Plt Count MPV Immature Gran % (Auto) Neut % (Auto) Lymph % (Auto) [place] % (Auto) Eos % (Auto) Baso % (Auto) Lymph # (Auto) [place] # (Auto) Eos # (Auto) Baso # (Auto) Abs Immat Gran (auto) Absolute Neuts (auto) Absolute Nucleated RBC Nucleated RBC % Sodium Potassium Chloride Carbon Dioxide Anion Gap BUN Creatinine Estim Creat Clear Calc Estimated GFR Glucose POC Capillary Glucose > 500 H* 441 H Calcium Magnesium Total Bilirubin AST ALT Alkaline Phosphatase Troponin I > 80.000 H* D Total Protein Albumin Urine Color Urine Appearance Urine pH Ur Specific [place] Urine Protein Urine Glucose (UA) Urine Ketones Ur Blood (Man) Urine Nitrate Urine Bilirubin Urine Urobilinogen Leukocyte Esterase Rfl Urine RBC Urine WBC Ur Squamous Epith Cells Urine Bacteria Urine Casts Nasal MRSA (PCR) 05/12/24 05/12/24 05/12/24 13:53 13:56 14:56 WBC RBC Hgb Hct MCV MCH MCHC RDW Plt Count MPV Immature Gran % (Auto) Neut % (Auto) Lymph % (Auto) [place] % (Auto) Eos % (Auto) Baso % (Auto) Lymph # (Auto) [place] # (Auto) Eos # (Auto) Baso # (Auto) Abs Immat Gran (auto) Absolute Neuts (auto) Absolute Nucleated RBC Nucleated RBC % Sodium 138 Potassium 4.3 Chloride 100 Carbon Dioxide 24 Anion Gap 14 H BUN 21 H Creatinine 1.20 Estim Creat Clear Calc 76 Estimated GFR > 60 Glucose 378 H POC Capillary Glucose 400 H 325 H Calcium 8.7 Magnesium Total Bilirubin AST ALT Alkaline Phosphatase Troponin I > 80.000 H* Total Protein Albumin Urine Color Urine Appearance Urine pH Ur Specific [place] Urine Protein Urine Glucose (UA) Urine Ketones Ur Blood (Man) Urine Nitrate Urine Bilirubin Urine Urobilinogen Leukocyte Esterase Rfl Urine RBC Urine WBC Ur Squamous Epith Cells Urine Bacteria Urine Casts Nasal MRSA (PCR) 05/12/24 05/12/24 05/12/24 15:43 16:44 18:01 WBC RBC Hgb Hct MCV MCH MCHC RDW Plt Count MPV Immature Gran % (Auto) Neut % (Auto) Lymph % (Auto) [place] % (Auto) Eos % (Auto) Baso % (Auto) Lymph # (Auto) [place] # (Auto) Eos # (Auto) Baso # (Auto) Abs Immat Gran (auto) Absolute Neuts (auto) Absolute Nucleated RBC Nucleated RBC % Sodium Potassium Chloride Carbon Dioxide Anion Gap BUN Creatinine Estim Creat Clear Calc Estimated GFR Glucose POC Capillary Glucose 266 H 230 H 185 H Calcium Magnesium Total Bilirubin AST ALT Alkaline Phosphatase Troponin I Total Protein Albumin Urine Color Urine Appearance Urine pH Ur Specific [place] Urine Protein Urine Glucose (UA) Urine Ketones Ur Blood (Man) Urine Nitrate Urine Bilirubin Urine Urobilinogen Leukocyte Esterase Rfl Urine RBC Urine WBC Ur Squamous Epith Cells Urine Bacteria Urine Casts Nasal MRSA (PCR) 05/12/24 05/12/24 05/12/24 18:05 18:13 18:45 WBC RBC Hgb Hct MCV MCH MCHC RDW Plt Count MPV Immature Gran % (Auto) Neut % (Auto) Lymph % (Auto) [place] % (Auto) Eos % (Auto) Baso % (Auto) Lymph # (Auto) [place] # (Auto) Eos # (Auto) Baso # (Auto) Abs Immat Gran (auto) Absolute Neuts (auto) Absolute Nucleated RBC Nucleated RBC % Sodium 140 Potassium 3.8 Chloride 103 Carbon Dioxide 28 Anion Gap 9 BUN 22 H Creatinine 1.40 H Estim Creat Clear Calc 66 Estimated GFR 52 L Glucose 183 H POC Capillary Glucose 157 H Calcium 9.1 Magnesium Total Bilirubin AST ALT Alkaline Phosphatase Troponin I Total Protein Albumin Urine Color Yellow Urine Appearance Clear Urine pH 5.5 Ur Specific [place] > 1.045 H Urine Protein 1+ H Urine Glucose (UA) 3+ H Urine Ketones 1+ H Ur Blood (Man) 2+ H Urine Nitrate Negative Urine Bilirubin Negative Urine Urobilinogen 0.2 Leukocyte Esterase Rfl Negative Urine RBC 6-10 H Urine WBC 0-5 Ur Squamous Epith Cells None seen Urine Bacteria None seen Urine Casts 0-2 Nasal MRSA (PCR) Not detected 05/12/24 05/12/24 05/12/24 19:19 20:08 20:53 WBC RBC Hgb Hct MCV MCH MCHC RDW Plt Count MPV Immature Gran % (Auto) Neut % (Auto) Lymph % (Auto) [place] % (Auto) Eos % (Auto) Baso % (Auto) Lymph # (Auto) [place] # (Auto) Eos # (Auto) Baso # (Auto) Abs Immat Gran (auto) Absolute Neuts (auto) Absolute Nucleated RBC Nucleated RBC % Sodium Potassium Chloride Carbon Dioxide Anion Gap BUN Creatinine Estim Creat Clear Calc Estimated GFR Glucose POC Capillary Glucose 148 H 147 H 177 H Calcium Magnesium Total Bilirubin AST ALT Alkaline Phosphatase Troponin I Total Protein Albumin Urine Color Urine Appearance Urine pH Ur Specific [place] Urine Protein Urine Glucose (UA) Urine Ketones Ur Blood (Man) Urine Nitrate Urine Bilirubin Urine Urobilinogen Leukocyte Esterase Rfl Urine RBC Urine WBC Ur Squamous Epith Cells Urine Bacteria Urine Casts Nasal MRSA (PCR) 05/12/24 05/12/24 05/12/24 21:58 22:56 23:52 WBC RBC Hgb Hct MCV MCH MCHC RDW Plt Count MPV Immature Gran % (Auto) Neut % (Auto) Lymph % (Auto) [place] % (Auto) Eos % (Auto) Baso % (Auto) Lymph # (Auto) [place] # (Auto) Eos # (Auto) Baso # (Auto) Abs Immat Gran (auto) Absolute Neuts (auto) Absolute Nucleated RBC Nucleated RBC % Sodium Potassium Chloride Carbon Dioxide Anion Gap BUN Creatinine Estim Creat Clear Calc Estimated GFR Glucose POC Capillary Glucose 214 H 204 H 225 H Calcium Magnesium Total Bilirubin AST ALT Alkaline Phosphatase Troponin I Total Protein Albumin Urine Color Urine Appearance Urine pH Ur Specific [place] Urine Protein Urine Glucose (UA) Urine Ketones Ur Blood (Man) Urine Nitrate Urine Bilirubin Urine Urobilinogen Leukocyte Esterase Rfl Urine RBC Urine WBC Ur Squamous Epith Cells Urine Bacteria Urine Casts Nasal MRSA (PCR) 05/13/24 05/13/24 05/13/24 00:51 01:56 02:54 WBC RBC Hgb Hct MCV MCH MCHC RDW Plt Count MPV Immature Gran % (Auto) Neut % (Auto) Lymph % (Auto) [place] % (Auto) Eos % (Auto) Baso % (Auto) Lymph # (Auto) [place] # (Auto) Eos # (Auto) Baso # (Auto) Abs Immat Gran (auto) Absolute Neuts (auto) Absolute Nucleated RBC Nucleated RBC % Sodium Potassium Chloride Carbon Dioxide Anion Gap BUN Creatinine Estim Creat Clear Calc Estimated GFR Glucose POC Capillary Glucose 235 H 248 H 240 H Calcium Magnesium Total Bilirubin AST ALT Alkaline Phosphatase Troponin I Total Protein Albumin Urine Color Urine Appearance Urine pH Ur Specific [place] Urine Protein Urine Glucose (UA) Urine Ketones Ur Blood (Man) Urine Nitrate Urine Bilirubin Urine Urobilinogen Leukocyte Esterase Rfl Urine RBC Urine WBC Ur Squamous Epith Cells Urine Bacteria Urine Casts Nasal MRSA (PCR) 05/13/24 05/13/24 05/13/24 03:54 05:01 05:32 WBC 18.1 H RBC 4.55 L Hgb 14.0 Hct 41.9 L MCV 92.1 MCH 30.8 MCHC 33.4 RDW 13.1 Plt Count 265 MPV 10.5 H Immature Gran % (Auto) 0.6 H Neut % (Auto) 81.4 H Lymph % (Auto) 11.2 L [place] % (Auto) 6.5 Eos % (Auto) 0.1 Baso % (Auto) 0.2 Lymph # (Auto) 2.03 [place] # (Auto) 1.2 H Eos # (Auto) 0.0 Baso # (Auto) 0.0 Abs Immat Gran (auto) 0.10 H Absolute Neuts (auto) 14.8 H Absolute Nucleated RBC 0.000 Nucleated RBC % 0.0 Sodium 138 Potassium 4.3 Chloride 103 Carbon Dioxide 24 Anion Gap 11 BUN 30 H Creatinine 1.30 Estim Creat Clear Calc 71 Estimated GFR 57 L Glucose 226 H POC Capillary Glucose 250 H 220 H Calcium 8.8 Magnesium 2.9 H Total Bilirubin 1.0 AST 501 H ALT 104 H Alkaline Phosphatase 74 Troponin I Total Protein 7.0 Albumin 4.1 Urine Color Urine Appearance Urine pH Ur Specific [place] Urine Protein Urine Glucose (UA) Urine Ketones Ur Blood (Man) Urine Nitrate Urine Bilirubin Urine Urobilinogen Leukocyte Esterase Rfl Urine RBC Urine WBC Ur Squamous Epith Cells Urine Bacteria Urine Casts Nasal MRSA (PCR) 05/13/24 05/13/24 05/13/24 06:49 07:52 09:08 WBC RBC Hgb Hct MCV MCH MCHC RDW Plt Count MPV Immature Gran % (Auto) Neut % (Auto) Lymph % (Auto) [place] % (Auto) Eos % (Auto) Baso % (Auto) Lymph # (Auto) [place] # (Auto) Eos # (Auto) Baso # (Auto) Abs Immat Gran (auto) Absolute Neuts (auto) Absolute Nucleated RBC Nucleated RBC % Sodium Potassium Chloride Carbon Dioxide Anion Gap BUN Creatinine Estim Creat Clear Calc Estimated GFR Glucose POC Capillary Glucose 221 H 238 H 322 H Calcium Magnesium Total Bilirubin AST ALT Alkaline Phosphatase Troponin I Total Protein Albumin Urine Color Urine Appearance Urine pH Ur Specific [place] Urine Protein Urine Glucose (UA) Urine Ketones Ur Blood (Man) Urine Nitrate Urine Bilirubin Urine Urobilinogen Leukocyte Esterase Rfl Urine RBC Urine WBC Ur Squamous Epith Cells Urine Bacteria Urine Casts Nasal MRSA (PCR) Echo . Left ventricular chamber dimension is moderately enlarged. 2. Left ventricular systolic function is severely reduced, estimated at 15-20%. 3. The left ventricular diastolic function is grade I diastolic dysfunction. 4. Right ventricular systolic function is normal. 5. Left atrial chamber dimension is mildly enlarged. 6. There is mild mitral valve regurgitation. 7. There is mild tricuspid valve regurgitation.
[2024-05-13 11:24] LABS: Glucose Point of Care 350 mg/dl (65-105)
[2024-05-13] MEDS: METOPROLOL SUCCINATE EXT REL 12.5 MG TABCR PO (12:00)
[2024-05-13 17:10] LABS: Glucose Point of Care 210 mg/dl (65-105)
--- NOTE | 2024-05-13 18:06 | PC.NURSE ---
This patient, Bert Morales, was transferred to [facility] on 05/13/24 at 1805. Personal belongings sent with patient. Report given to Kimberly. Appropriate documentation sent with patient.
--- NOTE | 2024-05-13 18:23 | PM.IMCN ---
Assessment and Plan Assessment and plan (1) ST elevation (STEMI) myocardial infarction: Code(s): I21.3 - ST elevation (STEMI) myocardial infarction of unspecified site Status: Acute Assessment and Plan: Patient presents by private car 6 hours after onset of chest pain. EKG showing STEMI and Trop >80. Patient taken to the biology laboratory assistant showing 30-40% left main disease, severe diffuse disease mid-distal LCX, severe diffuse disease RCA and 100% occlusion of the proximal LAD at the bifurcation of a diagonal branch. The diagonal branch had diffuse disease with severe stenosis in the distal portion. He underwent PCI and YOUNG placement in the LAD. He had significantly elevated LVED pressure of 49mmHg and was given Lasix IV once. Plan for medical management with Aspirin, Brilinta, Lipitor, Toprol XL. Cardiothoracic surgery consult being considered (2) Diabetic ketoacidosis: Code(s): E11.10 - Type 2 diabetes mellitus with ketoacidosis without coma Status: Acute Assessment and Plan: Patient presented with DKA with glucose 576, bicarb 20, AG 20, BHOB 2.8 but due to STEMI was not initiated any treatment in ER. Post procedure, patient moved to the ICU and started on DKA protocol with insulin drip and serial labs. Due to elevated LVEDP and CMP, he did not get any fluids. Anion gap closed and patient clinically improved He was transited to subcutaneous insulin Advanced to a diabetic diet (3) Cardiomyopathy: Code(s): I42.9 - Cardiomyopathy, unspecified Status: Acute Assessment and Plan: Elevated LVEDP during cardiac catheterization. He received Lasix 40mg in the biology laboratory assistant Echo showing moderately enlarged LV with severely reduced EF (15-20%), Grade I diastolic dysfxn, mild LAE and mild MR/TR. Toprol XL started. He will need guideline directed therapy with Entresto, Empagliflozin and Spironolactone if possible Life vest recommended as well Start Empagliflozin (4) Non-insulin dependent type 2 diabetes mellitus: Code(s): E11.9 - Type 2 diabetes mellitus without complications Status: Acute Assessment and Plan: As above. Patient has been transitioned to Lantus 20U daily and Novolog 5U at meals. A1c 12.8. Glucose 210 before dinner tonight. Continue current regiment for now Consult front desk officer and dietitian Add Empagliflozin. (5) Hyperlipidemia: Code(s): E78.5 - Hyperlipidemia, unspecified Status: Acute Assessment and Plan: TG 219, TC 222, LDL 148 and HDL 36. LFTs normal initially but now elevated with AST 501 and ALT 104. Lipitor 80mg daily started yesterday Probably AST/ALT elevation related to hepatic congestion and/or HoTN. No pain to suggest GB or pancreas etiolgy Will hold Lipitor and monitor. Check hepatitis panel. Consider RUQ US but no abd pain. Lipase normal but will repeat. (6) Hypertension: Code(s): I10 - Essential (primary) hypertension Status: Acute Assessment and Plan: Blood pressure was low during the procedure but improved now Toprol XL started. Monitor. Start other medications as BP toelrates (7) Nausea & vomiting: Code(s): R11.2 - Nausea with vomiting, unspecified Status: Acute Assessment and Plan: Secondary to STEMI and DKA. Symptoms better but still with poor oral intake. P.r.n. Zofran avaibale but hx of VTach so will stop this. Follow (8) Ventricular fibrillation: Code(s): I49.01 - Ventricular fibrillation Status: Acute Assessment and Plan: Patient had 1 episode on VFib during cardiac catheterization requiring DC defibrillation likely secondary be perfusion or irritation from the wire. Potassium 4.3 and Mag 2,9 No recurrence by tele. Continue telemetry (9) Leukocytosis: Code(s): D72.829 - Elevated white blood cell count, unspecified Status: Acute Assessment and Plan: WBC 12.5K on admission and climbed to 18K. Probably stress response. CXR not consistent with PNA. UA not consistent with UTI Follow (10) CAD (coronary artery disease): Code(s): I25.10 - Atherosclerotic heart disease of [place] coronary artery without angina pectoris Status: Acute Assessment and Plan: As above Plan DVT prophylaxis - Lovenox Code Status - Full Code HPI Date of Consult Consult date: 05/13/24 Requesting Physician: Nader Rondon MD Primary Care Provider: Phoenix Roberto MD Consult Narrative Narrative: 59yo male with DM, HTN and HLD who initially presented with chest pain and found to have STEMI. Patient developed acute onset of chest pain that woke him at 1am and associated with diaphoresis, SOB and nausea. EKG showed marked MILES anterior and inferior leads. He was taken to the cardiac biology laboratory assistant and found to have 100% LAD and YOUNG placed. Hospitalist service was consulted for DM management. He was diagnosed with DM about 5 years ago. He also believes he was diagnosed with HLD and HTN around this time. He was started on metformin but no medications for the HLD or HTN. His glucose was in the low 200's. He took metformin for about a year but stopped it due to GI side effects. He started an exercise program and diet modification. He has not been back to see a medical provider for about 4 years. He was doing well up until 1 year ago when he developed respiratory viral infection. He recovered but since then, has been having increasing BONILLA but no CP. He has not had his glucose checked over the past 4 years. He does have numbness in his feet. No vision changes. He had an episode of left sided numbness including his face a few years ago. He was seen in the ED but symptoms resolved on its own. Family feels he may have sleep apnea. He snorts himself awake. He snores and family noted apneic episodes. He currently feels better. He feels weak and no appetite. No focal weakness. 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 Family History Family History (Updated 05/13/24 @ 19:30 by Emiliano Farnsworth MD) Father Parkinson disease Sibling Patient's sister is in good health Mother Family history of diabetes mellitus in first degree relative TIA (transient ischemic attack) Social History Social History (Updated 05/13/24 @ 19:31 by Emiliano Farnsworth MD) Social History: Occasional alcohol intake. Lifelong nonsmoker. Denies drug use. 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 . Lives alone. Code status - full Surrogate decision maker - ex-, son Smoking status: Never smoker Alcohol intake: current Drinks per week: 1 Substance use: never Do You Feel Safe in your Home?: Yes Lack of Transportation: No Lack of Food: Never True Current Housing: Decline to Answer Concerned About Future Housing: Decline to Answer Difficulty Paying Gas/Electric Bills: Decline to Answer Difficulty Paying for Meds: Decline to Answer Currently Unemployed: Decline to Answer Education: Decline to Answer Difficulty w/ Childcare or Family Care: Decline to Answer Spiritual care concerns: No Meds Home Medications and Allergies Home Medications Medication Instructions Recorded Confirmed Type ticagrelor 90 mg tablet (Brilinta) 90 mg PO Q12HR 30 days #60 tabs 05/13/24 Rx Allergies Allergy/AdvReac Type Severity Reaction Status Date / Time No Known Allergies Allergy Verified 05/12/24 06:57 Vital Signs Vital Signs - 24 hr 05/12/24 20:09 05/12/24 20:00 05/12/24 20:00 Temperature 99.8 F H Pulse Rate 99 99 99 Respiratory Rate 22 H 16 Blood Pressure 101/76 Pulse Oximetry 94 98 Oxygen Delivery Room Air Oxygen Flow Rate 05/12/24 22:05 05/12/24 22:00 05/12/24 23:30 Temperature 99.6 F Pulse Rate 96 96 93 Respiratory Rate 20 Blood Pressure 108/74 Pulse Oximetry 99 Oxygen Delivery Oxygen Flow Rate 05/12/24 23:31 05/13/24 00:05 05/13/24 02:00 Temperature 99.6 F Pulse Rate 93 91 88 Respiratory Rate 22 H 20 Blood Pressure 97/78 L Pulse Oximetry 99 97 Oxygen Delivery Nasal Cannula Oxygen Flow Rate 2 05/13/24 02:00 05/13/24 03:23 05/13/24 03:23 Temperature Pulse Rate 88 91 87 Respiratory Rate 20 20 Blood Pressure 103/76 Pulse Oximetry 100 99 Oxygen Delivery Oxygen Flow Rate 05/13/24 03:24 05/13/24 04:00 05/13/24 06:00 Temperature 99.2 F 99 F Pulse Rate 87 91 94 Respiratory Rate 20 18 18 Blood Pressure 104/79 99/82 L Pulse Oximetry 99 100 98 Oxygen Delivery Nasal Cannula Oxygen Flow Rate 2 05/13/24 06:00 05/13/24 08:00 05/13/24 08:00 Temperature 98.3 F Pulse Rate 94 99 99 Respiratory Rate 19 Blood Pressure 103/82 Pulse Oximetry 98 Oxygen Delivery Oxygen Flow Rate 05/13/24 08:00 05/13/24 10:00 05/13/24 10:00 Temperature Pulse Rate 99 99 99 Respiratory Rate 19 18 Blood Pressure 109/82 Pulse Oximetry 98 96 Oxygen Delivery Room Air Oxygen Flow Rate 05/13/24 12:00 05/13/24 12:00 05/13/24 12:00 Temperature 98 F Pulse Rate 99 98 98 Respiratory Rate 20 Blood Pressure 100/76 Pulse Oximetry 98 Oxygen Delivery Oxygen Flow Rate 05/13/24 12:00 05/13/24 14:00 05/13/24 16:00 Temperature Pulse Rate 99 96 97 Respiratory Rate 19 15 16 Blood Pressure 100/83 Pulse Oximetry 98 99 99 Oxygen Delivery Nasal Cannula Room Air Oxygen Flow Rate 2 05/13/24 16:00 05/13/24 16:00 05/13/24 18:00 Temperature 97.8 F Pulse Rate 97 97 99 Respiratory Rate 16 Blood Pressure 104/87 Pulse Oximetry 99 Oxygen Delivery Oxygen Flow Rate Exam Narrative: Tm 100.0 97.8 104/87 99 16 99% ra Gen - well appearing male in no acute respiratory distress who is nontoxic-appearing lying semi recumbent in bed HEENT - normocephalic. Atraumatic. Pupils equal round and reactive. Extraocular motions intact. Sclera clear and anicteric. Nares patent. Oropharynx was crowded. No oral lesions. Moist mucous membranes. Tongue was midline. Palate carina symmetrically. No facial asymmetry. Neck - neck was supple. No dominant adenopathy, thyromegaly or masses. 2+ carotid upstrokes without bruits. Chest - lungs are clear to auscultation bilaterally. No wheezes or crackles. CV - heart was regular rate and rhythm. S1-S2. No murmurs gallops or rubs. Abd - abdomen was soft. Nontender. Nondistended. Obese. Positive bowel sounds. No organomegaly or masses. Ext - no clubbing, cyanosis. Trace pedal edema. 2+ DP pulses bilaterally. Neuro - patient is alert and oriented x4. Strength is 5/5 in both upper and lower extremities. Cranial nerves 2-12 are intact. Speech is clear. Normal senastion to the feet with light touch Psych - normal mood and affect. Patient is pleasant and cooperative. Skin - warm and dry. No rashes noted. Healing left forearm skin cancer resection site Results Labs 05/13/24 05:32 05/13/24 05:32 Labs: Short CBC 05/13/24 Range/Units 05:32 WBC 18.1 H (4.5-10.0) K/mm3 Hgb 14.0 (14.0-18.0) g/dL Hct 41.9 L (42.0-52.0) % Plt Count 265 (150-375) k/mm3 BMP 05/12/24 05/13/24 18:05 05:32 Sodium 140 138 Potassium 3.8 4.3 Chloride 103 103 Carbon Dioxide 28 24 BUN 22 H 30 H Creatinine 1.40 H 1.30 Glucose 183 H 226 H Calcium 9.1 8.8 Liver Function 05/13/24 Range/Units 05:32 Total Bilirubin 1.0 (0.2-1.3) mg/dL AST 501 H (17-59) U/L ALT 104 H (6-50) U/L Alkaline Phosphatase 74 (38-126) U/L Albumin 4.1 (3.5-5.1) g/dL Urine 05/12/24 Range/Units 18:13 Urine Color Yellow (Yellow) Urine Appearance Clear (Clear) Urine pH 5.5 (5.0-9.0) Ur Specific [place] > 1.045 H (1.001-1.035) Urine Protein 1+ H (Negative) mg/dL Urine Glucose (UA) 3+ H (Negative) mg/dL
[2024-05-13 20:13] LABS: Glucose Point of Care 289 mg/dl (65-105)
--- NOTE | 2024-05-13 23:11 | PC.NURSE ---
Took patient off sleep study. Patient refused.
[2024-05-14] VITALS (18 sets, daily range): BP systolic 93–122; BP diastolic 62–83; PULSE 96–108; RESP 18–24; TEMP 36.6–36.8; O2SAT 93–100
--- NOTE | 2024-05-14 | PCRCNOTE ---
Pt took apnea link off after one hour, does not want to do test
--- NOTE | 2024-05-14 02:15 | ECG_ITS ---
Test Date: 2024-05-14 02:26:51 Measurements Intervals [place] Rate: 97 P: 39 LA: 172 QRS: 98 QRSD: 140 T: -3 QT: 358 QTc: 456 Interpretive Statements SINUS RHYTHM POSSIBLE LEFT ATRIAL ENLARGEMENT [-0.1mV P WAVE IN V1/V2] RIGHT BUNDLE BRANCH BLOCK [120+ ms QRS DURATION, UPRIGHT V1, 40+ ms S IN I/aVL/V4/V5/V6] MARKED ST ELEVATION, CONSIDER ANTERIOR INJURY [MARKED ST ELEVATION W/O NORMALLY INFLECTED T WAVE IN V2-V5] MARKED ST ELEVATION, CONSIDER INFERIOR INJURY [MARKED ST ELEVATION W/O NORMALLY INFLECTED T WAVE IN II/aVF] ACUTE VA WARNING: DATA QUALITY MAY AFFECT INTERPRETATION Compared to ECG 05/13/2024 07:42:46 No significant changes Electronically Signed On 05-14-2024 13:10:29 CDT by Dorian Whitten M.D.
[2024-05-14] MEDS: NITROGLYCERIN SL 0.4 MG TABLET SUBLINGUAL ×3 (02:53→03:11)
[2024-05-14] MEDS: ONDANSETRON INJ 4 MG/2 ML VIAL IV PUSH ×2 (03:21→14:48)
[2024-05-14] MEDS: CENTRAL LINE FLUSH 10 ML IV PUSH ×2 (03:28→14:48)
[2024-05-14] MEDS: MORPHINE SULFATE (*CRX) 2 MG/ML INJ IV PUSH (03:29)
[2024-05-14 03:31] LABS: Hematocrit 41.2 % (42.0-52.0); Hemoglobin 13.9 g/dL (14.0-18.0); Mean Corpuscular HGB Conc 33.7 g/dl (32-36); Mean Corpuscular Hemoglobin 30.8 pg (26-34); Mean Corpuscular Volume 91.4 fl (80-100); Mean Platelet Volume 10.3 fl (7.4-10.4); Platelet Count Result 261 k/mm3 (150-375); Red Blood Count 4.51 M/mm3 (4.6-6.20); White Blood Count 18.7 K/mm3 (4.5-10.0)
[2024-05-14] MEDS: FUROSEMIDE INJ 40 MG/4 ML VIAL IV PUSH (03:35)
[2024-05-14 03:43] LABS: Alanine Aminotransferase 81 U/L (6-50); Albumin Level 3.8 g/dL (3.5-5.1); Alkaline Phosphatase 81 U/L (38-126); Anion Gap 9 mmol/L (4-12); Aspartate Amino Transferase 156 U/L (17-59); Bilirubin,Total 1.6 mg/dL (0.2-1.3); Blood Urea Nitrogen 34 mg/dL (9-20); Calcium 8.4 mg/dL (8.4-10.2); Carbon Dioxide 24 mmol/L (22-30); Chloride 99 mmol/L (98-107); Estimated CRCL calculation 71 ml/min; Estimated Glomerular Filt Rate 57; Glucose 238 mg/dL (65-110); Lipase 53 U/L (23-300); Magnesium 2.7 mg/dL (1.6-2.3); Potassium 3.7 mmol/L (3.4-5.0); Sodium 132 mmol/L (137-145)
[2024-05-14 04:04] LABS: NT Pro B Type Natriuretic Pept 2480 pg/mL (19.9-100)
[2024-05-14 04:13] LABS: Influenza A QL RT-PCR Negative (Negative); Influenza B QL RT-PCR Negative (Negative); RSV RNA, RT-PCR Negative (Negative); SARS-CoV-2 RNA PCR Negative (Negative)
[2024-05-14 04:14] LABS: Hepatitis B Surface Antigen Negative (Negative)
[2024-05-14 04:20] LABS: HAV RESULT Negative (Negative); Hepatitis B Core IgM Result Negative (Negative)
--- NOTE | 2024-05-14 04:21 | PC.NURSE ---
Patient began complaining of chest pressure rated 6/10 around 0205. RN called Dr. Bright. EKG obtained, patient O2 increased to 4 L. Provider at bedside from [id number]. CXR, labs, covid flu rsv completed. Three nitro sublingual tabs given without relief. IV morphine and lasix given. 0320 patient nausea and vomiting. Zofran given. 0400 Patient resting comfortably.
[2024-05-14 04:32] LABS: Hepatitis C Virus Antibody Negative (Negative)
--- NOTE | 2024-05-14 06:00 | ECG_ITS ---
Test Date: 2024-05-14 06:05:53 Measurements Intervals [place] Rate: 104 P: 35 ND: 147 QRS: 85 QRSD: 154 T: -22 QT: 367 QTc: 484 Interpretive Statements SINUS TACHYCARDIA POSSIBLE LEFT ATRIAL ENLARGEMENT [-0.1mV P WAVE IN V1/V2] INTRAVENTRICULAR CONDUCTION DELAY [130+ ms QRS DURATION] ANTEROSEPTAL MYOCARDIAL INFARCTION [40+ ms Q WAVE IN V1-V4], PROBABLY RECENT ACUTE [place] ABNORMAL ECG Myocardial infarct finding still present Electronically Signed On 05-14-2024 13:11:30 CDT by Dorian Whitten M.D.
--- NOTE | 2024-05-14 06:14 | PM.EVENT ---
Event Note Event Note Event Note: Approximately 2:00 a.m. the patient complained of chest pressure rated at 6/10. He does also report since his cardiac catheterization he had mild shortness of breath and over the night it did increase. Concurrently he developed acute hypoxic respiratory failure requiring 4 L nasal cannula. Nitroglycerin 0.4 mg sublingual given x3, morphine 2 mg IV x1 given. Subsequently the patient's pain resolved and he returned to sleep. Repeat troponin 31, it was greater than 80 on admission. Will continue to trend. Repeat EKG without major changes compared to admission. BNP 2480, chest x-ray preliminary read demonstrating pulmonary edema. Quad viral screen negative. On auscultation of lungs he has crackles at the bilateral bases right greater than left. LVEDP during catheterization on 05/12 was 49 mmHg and the patient was given Lasix 40 mg x 1 on the animal laboratory technician table. Believe the patient's chest discomfort was secondary to hypoxia which is secondary to decompensated heart failure. Administered Lasix 40 mg IV x1. O2 supplementation has since been weaned down to 3 L nasal cannula. Placed order for daily weights and strict intake/output. Cardiology notified as well, no further recommendations.
[2024-05-14 08:27] LABS: Glucose Point of Care 268 mg/dl (65-105)
--- NOTE | 2024-05-14 08:45 | ECG_ITS ---
Test Date: 2024-05-14 09:01:00 Measurements Intervals [place] Rate: 108 P: 24 CO: 144 QRS: 83 QRSD: 137 T: -17 QT: 346 QTc: 465 Interpretive Statements SINUS TACHYCARDIA POSSIBLE LEFT ATRIAL ENLARGEMENT [-0.1mV P-WAVE IN V1/V2] INTRAVENTRICULAR CONDUCTION DELAY [130+ ms QRS DURATION] ANTEROSEPTAL MYOCARDIAL INFARCTION , OF INDETERMINATE AGE [40+ ms Q WAVE IN V1-V4] MARKED ST ELEVATION, CONSIDER INFERIOR INJURY [MARKED ST ELEVATION W/O NORMALLY INFLECTED T-WAVE IN II/aVF] ACUTE [place] ABNORMAL ECG Electronically Signed On 05-14-2024 13:12:15 CDT by Dorian Whitten M.D.
[2024-05-14] MEDS: INSULIN ASPART (*BKC) 100 UNITS/ML SUB-Q ×6 (08:55→16:04)
[2024-05-14] MEDS: INSULIN GLARGINE (*BKC) 100 UNITS/ML 20 UNITS SUB-Q (08:55)
[2024-05-14] MEDS: ASPIRIN 81 MG ENTERIC TABLET PO (09:12)
[2024-05-14] MEDS: ENOXAPARIN 40 MG/0.4 ML SYRINGE SUB-Q (09:12)
[2024-05-14] MEDS: METOPROLOL SUCCINATE EXT REL 12.5 MG TABCR PO (09:13)
[2024-05-14] MEDS: TICAGRELOR 90 MG TABLET PO (09:13)
[2024-05-14] MEDS: EMPAGLIFLOZIN 10 MG TABLET PO (09:14)
[2024-05-14 11:59] LABS: Glucose Point of Care 336 mg/dl (65-105)
--- NOTE | 2024-05-14 12:49 | P.TS_ITS ---
Transfer Discharge Sum: Prov Provider Date of admission: 05/12/24 07:34 Primary care physician: Phoenix Roberto MD Admitting clinician: Nader Rondon MD Attending physician on admission: Nader Rondon Consults: 05/12/24 10:21 Consult to Dietitian Routine Reason for Consult:: DKA admission 05/13/24 Consult to Physician Routine Comment: Consulting Provider: Derrell Alberto Reason for consultation: stemi resp failure Has provider been notified: Yes Consult to Physician Routine Comment: left message for Dr. Farnsworth for consult Consulting Provider: Emiliano Farnsworth inbound call center representative/MD group to consult: hospitalist group Reason for consultation: diabetes Has provider been notified: Yes Attending physician on discharge: Nader Rondon Discharging clinician: Dorian Whitten Anticipated date of transfer: 05/14/24 Receiving physician/facility: Dr. Butron ICU at [facility] DS: Admitting Diagnosis Discharge Date 05/14/2024 Ad[address] Diagnosis An[address] ST-elevation myocardial infarction DS: Discharge Diagnosis Discharge Diagnosis (1) ST elevation (STEMI) myocardial infarction: Code(s): I21.3 - ST elevation (STEMI) myocardial infarction of unspecified site Status: Acute Assessment and Plan: Patient presented with a ST-elevation myocardial infarction anteriorly. Found to have multivessel disease. Acute lesion was treated with PCI as detailed in catheterization report (2) Ventricular fibrillation: Code(s): I49.01 - Ventricular fibrillation Status: Acute Assessment and Plan: In the lab technician: Probably treated and resuscitated (3) Hypertension: Code(s): I10 - Essential (primary) hypertension Status: Acute Assessment and Plan: Currently hypotensive (4) Ischemic cardiomyopathy: Code(s): I25.5 - Ischemic cardiomyopathy Status: Acute Assessment and Plan: Severe with an ejection fraction 15-20% (5) Diabetic ketoacidosis: Code(s): E11.10 - Type 2 diabetes mellitus with ketoacidosis without coma Status: Acute Assessment and Plan: Treated in the ICU (6) Non-insulin dependent type 2 diabetes mellitus: Code(s): E11.9 - Type 2 diabetes mellitus without complications Status: Acute Assessment and Plan: Currently on insulin (7) CAD (coronary artery disease): Code(s): I25.10 - Atherosclerotic heart disease of [place] coronary artery without angina pectoris Status: Acute Assessment and Plan: Multivessel disease (8) Cardiogenic shock: Code(s): R57.0 - Cardiogenic shock Status: Acute Assessment and Plan: Recurrent chest pain last night, decreased urine output, hypotension and tachycardic. 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 Status: Acute Assessment and Plan: Rub present on exam Transfer Discharge Sum: Med Medications Active and Home Medications: Home Medications ticagrelor 90 mg tablet (Brilinta) 90 mg PO Q12HR 30 days #60 tabs 05/13/24 [Rx] Active Medications Aspirin (Aspirin 81 Mg Enteric Tablet) 81 mg PO QAM [facility] Last Admin: 05/14/24 09:12 Dose: 81 mg Atorvastatin Calcium (Atorvastatin 40 Mg Tablet) 80 mg PO DAILY [facility] Last Admin: 05/13/24 08:04 Dose: 80 mg Dextrose (Dextrose 50% 25 Gm/50 Ml Syringe) 12.5 gm IV PUSH PRN PRN; Protocol PRN Reason: Hypoglycemia Empagliflozin (Empagliflozin 10 Mg Tablet) 10 mg PO DAILY [facility] Last Admin: 05/14/24 09:14 Dose: 10 mg Enoxaparin Sodium (Enoxaparin 40 Mg/0.4 Ml Syringe) 40 mg SUB-Q DAILY [facility] Last Admin: 05/14/24 09:12 Dose: 40 mg Glucagon (Glucagon For Inj 1 Mg Vial) 1 mg IM PRN PRN; Protocol PRN Reason: Hypoglycemia Glucose (Glucose Oral Gel 15 Gm Of Glucse In 37.5 Gm Tube) 15 gm PO PRN PRN; Protocol PRN Reason: Hypoglycemia Dextrose (Dextrose 5% 1,000 Ml) 1,000 mls @ 100 mls/hr IVPB PRN PRN; Protocol PRN Reason: Hypoglycemia Insulin Aspart (Insulin Aspart (*Bkc) 100 Units/Ml) 5 units SUB-Q TIDWM [facility] Last Admin: 05/14/24 11:58 Dose: 5 units Insulin Aspart (Insulin Aspart (*Bkc) 100 Units/Ml) 3 - 6 units SUB-Q TIDWM [facility]; Protocol Last Admin: 05/14/24 12:00 Dose: 5 units Insulin Aspart (Insulin Aspart (*Bkc) 100 Units/Ml) 1 - 3 units SUB-Q HS [facility]; Protocol Last Admin: 05/13/24 20:48 Dose: 2 units Insulin Glargine (Insulin Glargine (*Bkc) 100 Units/Ml) 20 units SUB-Q QAM [facility] Last Admin: 05/14/24 08:55 Dose: 20 units Metoprolol Succinate (Metoprolol Succinate Ext Rel 12.5 Mg Tabcr) 12.5 mg PO QAM [facility] Last Admin: 05/14/24 09:13 Dose: 12.5 mg Nitroglycerin (Nitroglycerin Sl 0.4 Mg Tablet) 0.4 mg SUBLINGUAL Q5MIN PRN PRN Reason: Chest Pain Last Admin: 05/14/24 03:11 Dose: 0.4 mg Ondansetron HCl (Ondansetron Inj 4 Mg/2 Ml Vial) 4 mg IV PUSH Q4H PRN PRN Reason: Nausea And Vomiting Last Admin: 05/14/24 03:21 Dose: 4 mg Sodium Chloride (Central Line Flush) 20 ml IV PUSH PRN PRN PRN Reason: after blood draws Sodium Chloride (Central Line Flush) 10 ml IV PUSH PRN PRN PRN Reason: with TPN bag changes Sodium Chloride (Central Line Flush) 10 ml IV PUSH Q8HR [facility] Last Admin: 05/14/24 03:28 Dose: 10 ml Ticagrelor (Ticagrelor 90 Mg Tablet) 90 mg PO Q12HR [facility] Last Admin: 05/14/24 09:13 Dose: 90 mg Transfer Discharge Sum: Hosp Hospital Course Hospital course: Bert Morales is a 59 year old male who presented with and anterior ST segment elevation myocardial infarction. Cardiac catheterization showed Findings: LEFT HEART CATHETERIZATION FINDINGS: 1. Left main: The distal left main has 30-40% disease. 2. Left anterior descending: The proximal LAD is 100% occluded, at the bifurcation of a diagonal branch. The diagonal branch has diffuse disease with severe stenosis in the distal portion. 3. Left circumflex: The left circumflex artery has severe diffuse disease in the mid to distal portion. 4. Right coronary artery: The RCA is the dominant vessel. The RCA has severe diffuse disease. 5. Left ventricle: A. End-diastolic pressure 49 mmHg. B. LV gram deferred. C. No significant gradient across aortic valve on catheter pullback. Description of Procedure and PCI: Patient transferred to lab technician room. Prepped and draped in usual sterile fashion. 2% lidocaine injected subcutaneously in right wrist area. 22-gauge venipuncture catheter used to access the right radial artery under ultrasound guidance. 6-FR slender sheath placed in right radial artery. Nitroglycerine and Verapamil were given intraarterial through the sheath. Versacore wire advanced under fluoroscopy 5F Tig 4 diagnostic catheter engaged Left Main Coronary Artery. 5F Tig 4 diagnostic catheter engaged Right Coronary Artery Multiple orthogonal angiogram obtained and reviewed Angiomax was used for anticoagulation. 6F CLS 3.0 guide catheter was used to intubate the left main. 0.014 [place] coronary wire was passed in to the distal LAD. The lesion was pre-dilated with a 2.5 mm x 15 mm balloon inflated to high MARY. Flow was restored to the distal LAD with balloon angioplasty. IVUS catheter advanced, however, would not completely cross the lesion. IVUS showed a concentric calcified lesion. Intracoronary NTG was administered Further balloon angioplasty done with a 3.0mm x 10mm balloon, Scoreflex 3.0mm x 10mm balloon and an NC 3.0mm x 8mm balloon given the calcific disease. Intracoronary NTG was administered A 3.5 mm x 18mm Orsiro YOUNG was successfully deployed into proximal LAD. The stent was post-dilated with a 3.5mm x 8mm NC balloon inflated to high MARY. Intracoronary NTG was administered Coronary wire and guide-catheter were removed Pre-procedure - BLANCA 0 flow Post-procedure - BLANCA 3 flow No angiographic complications identified. 5F Pigtail diagnostic catheter crossed aortic valve to obtain LVEDP, LV angiogram deferred. As LVEDP was significantly high, he was given Lasix 40mg IV x 1. While pigtail catheter was in the LV, patient did go into VT. We shocked him once with jain of sinus rhythm. Blood pressures remained stable. Hemostasis was achieved by application of TR band. Patient was given boluses of Phenylephrine and was on low dose Levophed drip during the case, however, Levophed was weaned off prior to completion of the case. He was also found to be in DKA. He was transferred to the ICU given IV fluids in DKA probably treated by the sox analyst. Patient was hypotensive and tachycardic. Low-dose metoprolol was initiated which he did tolerate yesterday. He was requiring oxygen. Last night as a screen for sleep apnea, apnea link was initiated but he became acutely short of breath. He then later developed chest pain which was significant and severe and similar to what he had upon presentation. EKG is performed showed bleeding involving ST elevations/changes from initial ECG on 05/12/2024: Troponins were still markedly elevated at 31 but down from greater than 80. They did increase to 33 but then the next set was then backed out of 31. He was given nitroglycerin, morphine, IV Lasix, oxygen restarted and symptoms did improve. Upon examination today he was found have a pericardial rub, decreased urine output, tachycardic and hypotensive. Chest pain predominantly resolved but feels like he cannot get a big enough breath. No syncope or presyncope. Due to the potential need for mechanical s upport such as a balloon pump, it was decided to proceed with transfer to [facility] for higher level of care. Case was discussed with Dr. Abdi, Dr. Nolasco, Dr. Farnsworth and Dr. Burton (the accepting ICU physician at [facility]) Echocardiogram 1. Left ventricular chamber dimension is moderately enlarged. 2. Left ventricular systolic function is severely reduced, estimated at 15-20%. 3. The left ventricular diastolic function is grade I diastolic dysfunction. 4. Right ventricular systolic function is normal. 5. Left atrial chamber dimension is mildly enlarged. 6. There is mild mitral valve regurgitation. 7. There is mild tricuspid valve regurgitation. Time Spent with Patient Time attestation: Total time spent providing and/or coordinating transfer services: Total time spent: Greater than 30 minutes Exam Narrative: ill-appearing. Appears stated age Const: General: in distress and uncomfortable HENMT: Ears: TM's normal bilaterally Face/Nose/Sinus: Normal nares present Eyes: General: appearance normal, both eyes and all related structures Sclera: sclerae normal Neck: Neck: supple Chest: Other: No reproducible chest wall pain to palpation Resp: Effort & Inspection: normal respiratory effort Auscultation: rales and diminished lung sounds Cardio: Rate: tachycardic Rhythm: regular rhythm Heart sounds: no murmurs GI: Inspection: non-distended GI Palp: Yes Soft to palpation Auscultation: normal bowel sounds Skin: General skin exam: normal color Neuro: Speech: normal speech Extrem: General: normal to inspection Psych: Mental Status: mental status grossly normal Affect: normal affect DS: Data Data Completed and Pending Completed studies during hospitalization: Findings: LEFT HEART CATHETERIZATION FINDINGS: 1. Left main: The distal left main has 30-40% disease. 2. Left anterior descending: The proximal LAD is 100% occluded, at the bifurcation of a diagonal branch. The diagonal branch has diffuse disease with severe stenosis in the distal portion. 3. Left circumflex: The left circumflex artery has severe diffuse disease in the mid to distal portion. 4. Right coronary artery: The RCA is the dominant vessel. The RCA has severe diffuse disease. 5. Left ventricle: A. End-diastolic pressure 49 mmHg. B. LV gram deferred. C. No significant gradient across aortic valve on catheter pullback. Description of Procedure and PCI: Patient transferred to lab technician room. Prepped and draped in usual sterile fashion. 2% lidocaine injected subcutaneously in right wrist area. 22-gauge venipuncture catheter used to access the right radial artery under ultrasound guidance. 6-FR slender sheath placed in right radial artery. Nitroglycerine and Verapamil were given intraarterial through the sheath. Versacore wire advanced under fluoroscopy 5F Tig 4 diagnostic catheter engaged Left Main Coronary Artery. 5F Tig 4 diagnostic catheter engaged Right Coronary Artery Multiple orthogonal angiogram obtained and reviewed Angiomax was used for anticoagulation. 6F CLS 3.0 guide catheter was used to intubate the left main. 0.014 [place] coronary wire was passed in to the distal LAD. The lesion was pre-dilated with a 2.5 mm x 15 mm balloon inflated to high MARY. Flow was restored to the distal LAD with balloon angioplasty. IVUS catheter advanced, however, would not completely cross the lesion. IVUS showed a concentric calcified lesion. Intracoronary NTG was administered Further balloon angioplasty done with a 3.0mm x 10mm balloon, Scoreflex 3.0mm x 10mm balloon and an NC 3.0mm x 8mm balloon given the calcific disease. Intracoronary NTG was administered A 3.5 mm x 18mm Orsiro YOUNG was successfully deployed into proximal LAD. The stent was post-dilated with a 3.5mm x 8mm NC balloon inflated to high MARY. Intracoronary NTG was administered Coronary wire and guide-catheter were removed Pre-procedure - BLANCA 0 flow Post-procedure - BLANCA 3 flow No angiographic complications identified. 5F Pigtail diagnostic catheter crossed aortic valve to obtain LVEDP, LV angiogram deferred. As LVEDP was significantly high, he was given Lasix 40mg IV x 1. While pigtail catheter was in the LV, patient did go into VT. We shocked him once with jain of sinus rhythm. Blood pressures remained stable. Hemostasis was achieved by application of TR band. Patient was given boluses of Phenylephrine and was on low dose Levophed drip during the case, however, Levophed was weaned off prior to completion of the case. ECHO . Left ventricular chamber dimension is moderately enlarged. 2. Left ventricular systolic function is severely reduced, estimated at 15-20%. 3. The left ventricular diastolic function is grade I diastolic dysfunction. 4. Right ventricular systolic function is normal. 5. Left atrial chamber dimension is mildly enlarged. 6. There is mild mitral valve regurgitation. 7. There is mild tricuspid valve regurgitation. Pending studies at discharge: None Labs on day of discharge: Labs from last 24 hours 05/14/24 05/14/24 05/14/24 11:43 09:11 07:57 WBC RBC Hgb Hct MCV MCH MCHC RDW Plt Count MPV Sodium Potassium Chloride Carbon Dioxide Anion Gap BUN Creatinine Estim Creat Clear Calc Estimated GFR Glucose POC Capillary Glucose 336 H 268 H Calcium Magnesium Total Bilirubin AST ALT Alkaline Phosphatase Troponin I 31.400 H* NT-Pro-B Natriuret Pep Total Protein Albumin Lipase Hepatitis A IgM Ab Hep Bs Antigen Hep B Core IgM Ab Hepatitis C Ab Screen Influenza A (RT-PCR) Influenza B (RT-PCR) RSV (RT-PCR) SARS-CoV-2 RNA (RT-PCR) 05/14/24 05/14/24 05/14/24 06:15 03:10 03:10 WBC RBC Hgb Hct MCV MCH MCHC RDW Plt Count MPV Sodium Potassium Chloride Carbon Dioxide Anion Gap BUN Creatinine Estim Creat Clear Calc Estimated GFR Glucose POC Capillary Glucose Calcium Magnesium Total Bilirubin AST ALT Alkaline Phosphatase Troponin I 33.800 H* NT-Pro-B Natriuret Pep Cancelled Total Protein 7.0 Albumin 3.8 Lipase Cancelled 53 Hepatitis A IgM Ab Negative Hep Bs Antigen Negative Hep B Core IgM Ab Negative Hepatitis C Ab Screen Negative Influenza A (RT-PCR) Influenza B (RT-PCR) RSV (RT-PCR) SARS-CoV-2 RNA (RT-PCR) 05/14/24 05/14/24 05/14/24 03:10 03:10 00:17 WBC 18.7 H RBC 4.51 L Hgb 13.9 L Hct 41.2 L MCV 91.4 MCH 30.8 MCHC 33.7 RDW 13.0 Plt Count 261 MPV 10.3 Sodium 132 L Potassium 3.7 Chloride 99 Carbon Dioxide 24 Anion Gap 9 BUN 34 H Creatinine 1.30 Estim Creat Clear Calc 71 Estimated GFR 57 L Glucose 238 H POC Capillary Glucose Calcium 8.4 Magnesium 2.7 H Total Bilirubin 1.6 H AST 156 H ALT 81 H Alkaline Phosphatase 81 Troponin I Cancelled 31.000 H* NT-Pro-B Natriuret Pep 2480 H Total Protein Albumin Lipase Hepatitis A IgM Ab Hep Bs Antigen Hep B Core IgM Ab Hepatitis C Ab Screen Influenza A (RT-PCR) Negative Influenza B (RT-PCR) Negative RSV (RT-PCR) Negative SARS-CoV-2 RNA (RT-PCR) Negative 05/13/24 05/13/24 19:48 17:05 WBC RBC Hgb Hct MCV MCH MCHC RDW Plt Count MPV Sodium Potassium Chloride Carbon Dioxide Anion Gap BUN Creatinine Estim Creat Clear Calc Estimated GFR Glucose POC Capillary Glucose 289 H 210 H Calcium Magnesium Total Bilirubin AST ALT Alkaline Phosphatase Troponin I NT-Pro-B Natriuret Pep Total Protein Albumin Lipase Hepatitis A IgM Ab Hep Bs Antigen Hep B Core IgM Ab Hepatitis C Ab Screen Influenza A (RT-PCR) Influenza B (RT-PCR) RSV (RT-PCR) SARS-CoV-2 RNA (RT-PCR) Procedures/Treatments: Cardiac catheterization as detailed above
--- NOTE | 2024-05-14 15:40 | P.PNIM_ITS ---
Progress Note: A&P Assessment and Plan (1) ST elevation (STEMI) myocardial infarction: Code(s): I21.3 - ST elevation (STEMI) myocardial infarction of unspecified site Status: Acute Assessment and Plan: Patient presents by private car 6 hours after onset of chest pain. EKG showing STEMI and Trop >80. Patient taken to the labor representative showing 30-40% left main disease, severe diffuse disease mid-distal LCX, severe diffuse disease RCA and 100% occlusion of the proximal LAD at the bifurcation of a diagonal branch. The diagonal branch had diffuse disease with severe stenosis in the distal portion. He underwent PCI and YOUNG placement in the LAD. He had significantly elevated LVED pressure of 49mmHg and was given Lasix IV once. Cardiothoracic surgery consult being considered Plan for medical management with Aspirin, Brilinta, Lipitor, Toprol XL. has cardiac rub now with recurrent CP. Troponin trending down >80 -> 31. Discussed with Cardiology. Plan to transfer to tertiary care center for closer monitoring. (2) Cardiomyopathy: Code(s): I42.9 - Cardiomyopathy, unspecified Status: Acute Assessment and Plan: Elevated LVEDP during cardiac catheterization. He received Lasix 40mg in the labor representative Echo showing moderately enlarged LV with severely reduced EF (15-20%), Grade I diastolic dysfxn, mild LAE and mild MR/TR. Toprol XL and Empagliflozin started. He will need guideline directed therapy with Entresto and Spironolactone if possible Life vest recommended as well Plan to transfer patient (3) Diabetic ketoacidosis: Code(s): E11.10 - Type 2 diabetes mellitus with ketoacidosis without coma Status: Acute Assessment and Plan: Patient presented with DKA with glucose 576, bicarb 20, AG 20, BHOB 2.8 but due to STEMI was not initiated any treatment in ER. Post procedure, patient moved to the ICU and started on DKA protocol with insulin drip and serial labs. Due to elevated LVEDP and CMP, he did not get any fluids. Anion gap closed and patient clinically improved He was transited to subcutaneous insulin Advanced to a diabetic diet (4) Non-insulin dependent type 2 diabetes mellitus: Code(s): E11.9 - Type 2 diabetes mellitus without complications Status: Acute Assessment and Plan: A1c 12.8. Patient has been transitioned to Lantus 20U daily and Novolog 5U at meals. Glucose poorly controlled. Consult health promotion educator and dietitian Advance insulin regiment and defer to accepting facility for further titration (5) Hyperlipidemia: Code(s): E78.5 - Hyperlipidemia, unspecified Status: Acute Assessment and Plan: TG 219, TC 222, LDL 148 and HDL 36. LFTs normal initially but climbed to AST 501 and ALT 104. Lipitor 80mg daily started. Hepatitis panel negative. Probably AST/ALT elevation related to hepatic congestion and/or HoTN. No pain to suggest GB or pancreas etiology Lipitor held. LFTs better today. Resume lipitor tomorrow if LFTs continue to improve. (6) Hypertension: Code(s): I10 - Essential (primary) hypertension Status: Acute Assessment and Plan: Blood pressure was low during the procedure but improved now Toprol XL started. Monitor. Start other medications as BP toelrates (7) Nausea & vomiting: Code(s): R11.2 - Nausea with vomiting, unspecified Status: Acute Assessment and Plan: Secondary to STEMI and DKA. Symptoms better but still with poor oral intake and occasional n/v P.r.n. Zofran available but hx of VTach so that was stopped. Follow (8) Ventricular fibrillation: Code(s): I49.01 - Ventricular fibrillation Status: Acute Assessment and Plan: Patient had 1 episode on VFib during cardiac catheterization requiring DC defibrillation likely secondary be perfusion or irritation from the wire. Potassium 3.7 and Mag 2.7 No recurrence by tele. Continue telemetry (9) Leukocytosis: Code(s): D72.829 - Elevated white blood cell count, unspecified Status: Acute Assessment and Plan: WBC 12.5K on admission and climbed to 18K. Probably stress response. CXR not consistent with PNA. UA not consistent with UTI Repeat WBC still 18K and now repeat CXR showing LLL airspace disease. He does have a nonproductive cough. No fevers Hold on abx at this time since more likely congestion then infectious etiology. Follow (10) CAD (coronary artery disease): Code(s): I25.10 - Atherosclerotic heart disease of [place] coronary artery without angina pectoris Status: Acute Assessment and Plan: As above Plan DVT prophylaxis - Lovenox Code Status - Full Code Subjective Date/time seen: 05/14/24 15:40 Interval history: 59yo male with DM, HTN and HLD who initially presented with chest pain and found to have STEMI. Patient developed worsening SOB overnight off O2. he was not hypoxic so reassurance provide and he was continued on his apnea link. He did not sleep but later developed SOB again this time with initially pleuritic chest pain then more pressure type pain that felt similar to the pain to his AMI. Veterinary Attendant called and repeat Trop trending down and CXR showing LLL airspace disease. lasix IV once given but patient states no UOP Has a nonproductive cough. Developed nausae and vomiting with LH as well. Exam Narrative: AF 98.2 104/78 108 24 99% 4L Gen - NARD sitting up in bed Chest - decreased BS in the bases. CV - RRR. S1-S2. +friction rub but no gallop. Tele showing no significant dysrhythmias Abd - soft. Nontender. Nondistended. Obese. Ext - no pedal edema. Psych - normal mood and affect. Skin - cool and dry. Objective Data Vital Signs Vital Signs: Vital Signs - 24 hr 05/13/24 16:00 05/13/24 16:00 05/13/24 16:00 Temperature 97.8 F Pulse Rate 97 97 97 Respiratory Rate 16 16 Blood Pressure 104/87 Pulse Oximetry 99 99 Oxygen Delivery Room Air Oxygen Flow Rate Fraction of Inspired Oxygen 05/13/24 18:00 05/13/24 20:00 05/13/24 20:00 Temperature 98.4 F Pulse Rate 99 100 98 Respiratory Rate 16 Blood Pressure 103/74 Pulse Oximetry 94 Oxygen Delivery Oxygen Flow Rate Fraction of Inspired Oxygen 05/13/24 20:00 05/13/24 21:35 05/13/24 22:00 Temperature Pulse Rate 97 101 H Respiratory Rate Blood Pressure Pulse Oximetry 97 98 Oxygen Delivery Nasal Cannula Room Air Oxygen Flow Rate 1 Fraction of Inspired Oxygen 05/13/24 23:40 05/13/24 23:52 05/13/24 23:00 Temperature 98.1 F Pulse Rate 97 97 Respiratory Rate 16 Blood Pressure 98/70 L Pulse Oximetry 98 99 98 Oxygen Delivery Nasal Cannula Oxygen Flow Rate 1 Fraction of Inspired Oxygen 05/14/24 00:00 05/14/24 02:19 05/14/24 02:20 Temperature 97.8 F Pulse Rate 96 99 98 Respiratory Rate 21 H Blood Pressure 122/82 Pulse Oximetry 99 100 Oxygen Delivery Nasal Cannula Oxygen Flow Rate 4 Fraction of Inspired Oxygen 05/14/24 03:31 05/14/24 02:00 05/14/24 03:48 Temperature Pulse Rate 106 H 98 102 H Respiratory Rate 18 Blood Pressure 101/62 Pulse Oximetry 95 99 Oxygen Delivery Nasal Cannula Oxygen Flow Rate 4 Fraction of Inspired Oxygen 05/14/24 04:00 05/14/24 06:00 05/14/24 04:30 Temperature 97.9 F Pulse Rate 104 H 105 H 106 H Respiratory Rate 18 Blood Pressure 118/83 Pulse Oximetry 97 Oxygen Delivery Oxygen Flow Rate Fraction of Inspired Oxygen 05/14/24 07:50 05/14/24 08:00 05/14/24 09:13 Temperature 98.3 F Pulse Rate 105 H 105 H Respiratory Rate 20 Blood Pressure 109/71 Pulse Oximetry 99 99 Oxygen Delivery Nasal Cannula Oxygen Flow Rate 4 Fraction of Inspired Oxygen 36 05/14/24 08:00 05/14/24 08:00 05/14/24 10:00 Temperature Pulse Rate 107 H 104 H Respiratory Rate Blood Pressure Pulse Oximetry 93 Oxygen Delivery Nasal Cannula Oxygen Flow Rate 4 Fraction of Inspired Oxygen 05/14/24 12:00 05/14/24 12:00 05/14/24 12:00 Temperature 98.2 F Pulse Rate 107 H 108 H Respiratory Rate 24 H Blood Pressure 93/65 L Pulse Oximetry 99 99 Oxygen Delivery Nasal Cannula Oxygen Flow Rate 4 Fraction of Inspired Oxygen 05/14/24 13:50 Temperature Pulse Rate Respiratory Rate Blood Pressure 104/78 Pulse Oximetry Oxygen Delivery Oxygen Flow Rate Fraction of Inspired Oxygen Intake/Output Intake/Output: Intake & Output 05/11/24 05/12/24 05/13/24 05/14/24 23:59 23:59 23:59 23:59 Intake Total 161.0 1011.8 1340 Output Total 9505 969 6678 Balance -1739.0 336.8 140 Meds/Results Medications: Active Medications Generic Name Dose Route Start Last Admin Trade Name Freq PRN Reason Stop Dose Admin Aspirin 81 mg 05/13/24 09:00 05/14/24 09:12 Aspirin 81 Mg Enteric Tablet PO 81 mg QAM MORA Administration Atorvastatin Calcium 80 mg 05/12/24 10:10 05/13/24 08:04 Atorvastatin 40 Mg Tablet PO 80 mg DAILY MORA Administration Dextrose 12.5 gm 05/12/24 10:21 Dextrose 50% 25 Gm/50 Ml Syringe IV PUSH PRN PRN Hypoglycemia Protocol Empagliflozin 10 mg 05/14/24 09:00 05/14/24 09:14 Empagliflozin 10 Mg Tablet PO 10 mg DAILY MORA Administration Enoxaparin Sodium 40 mg 05/13/24 09:00 05/14/24 09:12 Enoxaparin 40 Mg/0.4 Ml Syringe SUB-Q 40 mg DAILY MORA Administration Glucagon 1 mg 05/12/24 10:21 Glucagon For Inj 1 Mg Vial IM PRN PRN Hypoglycemia Protocol Glucose 15 gm 05/12/24 10:21 Glucose Oral Gel 15 Gm Of Glucse In 37.5 Gm Tube PO PRN PRN Hypoglycemia Protocol Dextrose 1,000 mls @ 100 mls/hr 05/12/24 10:21 Dextrose 5% 1,000 Ml IVPB PRN PRN Hypoglycemia Protocol Insulin Aspart 5 units 05/13/24 08:00 05/14/24 11:58 Insulin Aspart (*Bkc) 100 Units/Ml SUB-Q 5 units TIDWM MORA Administration Insulin Aspart 3 - 6 units 05/13/24 08:00 05/14/24 12:00 Insulin Aspart (*Bkc) 100 Units/Ml SUB-Q 5 units TIDWM MORA Administration Protocol Insulin Aspart 1 - 3 units 05/13/24 21:00 05/13/24 20:48 Insulin Aspart (*Bkc) 100 Units/Ml SUB-Q 2 units HS MORA Administration Protocol Insulin Glargine 20 units 05/13/24 09:00 05/14/24 08:55 Insulin Glargine (*Bkc) 100 Units/Ml SUB-Q 20 units QAM MORA Administration Metoprolol Succinate 12.5 mg 05/13/24 11:30 05/14/24 09:13 Metoprolol Succinate Ext Rel 12.5 Mg Tabcr PO 12.5 mg QAM MORA Administration Nitroglycerin 0.4 mg 05/14/24 02:44 05/14/24 03:11 Nitroglycerin Sl 0.4 Mg Tablet SUBLINGUAL 0.4 mg Q5MIN PRN Administration Chest Pain Ondansetron HCl 4 mg 05/12/24 10:54 05/14/24 14:48 Ondansetron Inj 4 Mg/2 Ml Vial IV PUSH 4 mg Q4H PRN Administration Nausea And Vomiting Sodium Chloride 20 ml 05/12/24 13:03 Central Line Flush IV PUSH PRN PRN after blood draws Sodium Chloride 10 ml 05/12/24 13:03 Central Line Flush IV PUSH PRN PRN with TPN bag changes Sodium Chloride 10 ml 05/12/24 14:00 05/14/24 14:48 Central Line Flush IV PUSH 10 ml Q8HR MORA Administration Ticagrelor 90 mg 05/12/24 21:00 05/14/24 09:13 Ticagrelor 90 Mg Tablet PO 90 mg Q12HR MORA Administration Radiology Results: ITS Impressions Chest X-Ray 05/14/24 06:22 IMPRESSION: 1. Worsened airspace opacities in left lower lung zone, consistent with atelectasis versus pneumonia. 2. Small left pleural effusion. Labs Labs: Laboratory Results - last 24 hr 05/13/24 05/13/24 05/14/24 17:05 19:48 00:17 WBC RBC Hgb Hct MCV MCH MCHC RDW Plt Count MPV Sodium Potassium Chloride Carbon Dioxide Anion Gap BUN Creatinine Estim Creat Clear Calc Estimated GFR Glucose POC Capillary Glucose 210 H 289 H Calcium Magnesium Total Bilirubin AST ALT Alkaline Phosphatase Troponin I NT-Pro-B Natriuret Pep Total Protein Albumin Lipase Hepatitis A IgM Ab Hep Bs Antigen Hep B Core IgM Ab Hepatitis C Ab Screen Influenza A (RT-PCR) Negative Influenza B (RT-PCR) Negative RSV (RT-PCR) Negative SARS-CoV-2 RNA (RT-PCR) Negative 05/14/24 05/14/24 05/14/24 03:10 03:10 03:10 WBC 18.7 H RBC 4.51 L Hgb 13.9 L Hct 41.2 L MCV 91.4 MCH 30.8 MCHC 33.7 RDW 13.0 Plt Count 261 MPV 10.3 Sodium 132 L Potassium 3.7 Chloride 99 Carbon Dioxide 24 Anion Gap 9 BUN 34 H Creatinine 1.30 Estim Creat Clear Calc 71 Estimated GFR 57 L Glucose 238 H POC Capillary Glucose Calcium 8.4 Magnesium 2.7 H Total Bilirubin 1.6 H AST 156 H ALT 81 H Alkaline Phosphatase 81 Troponin I 31.000 H* Cancelled NT-Pro-B Natriuret Pep 2480 H Cancelled Total Protein 7.0 Albumin 3.8 Lipase 53 Hepatitis A IgM Ab Hep Bs Antigen Hep B Core IgM Ab Hepatitis C Ab Screen Influenza A (RT-PCR) Influenza B (RT-PCR) RSV (RT-PCR) SARS-CoV-2 RNA (RT-PCR) 05/14/24 05/14/24 05/14/24 03:10 06:15 07:57 WBC RBC Hgb Hct MCV MCH MCHC RDW Plt Count MPV Sodium Potassium Chloride Carbon Dioxide Anion Gap BUN Creatinine Estim Creat Clear Calc Estimated GFR Glucose POC Capillary Glucose 268 H Calcium Magnesium Total Bilirubin AST ALT Alkaline Phosphatase Troponin I 33.800 H* NT-Pro-B Natriuret Pep Total Protein Albumin Lipase Cancelled Hepatitis A IgM Ab Negative Hep Bs Antigen Negative Hep B Core IgM Ab Negative Hepatitis C Ab Screen Negative Influenza A (RT-PCR) Influenza B (RT-PCR) RSV (RT-PCR) SARS-CoV-2 RNA (RT-PCR) 05/14/24 05/14/24 09:11 11:43 WBC RBC Hgb Hct MCV MCH MCHC RDW Plt Count MPV Sodium Potassium Chloride Carbon Dioxide Anion Gap BUN Creatinine Estim Creat Clear Calc Estimated GFR Glucose POC Capillary Glucose 336 H Calcium Magnesium Total Bilirubin AST ALT Alkaline Phosphatase Troponin I 31.400 H* NT-Pro-B Natriuret Pep Total Protein Albumin Lipase Hepatitis A IgM Ab Hep Bs Antigen Hep B Core IgM Ab Hepatitis C Ab Screen Influenza A (RT-PCR) Influenza B (RT-PCR) RSV (RT-PCR) SARS-CoV-2 RNA (RT-PCR)
[2024-05-14 15:52] LABS: Glucose Point of Care 224 mg/dl (65-105)
--- NOTE | 2024-05-15 09:12 | PCCDE ---
05/15/24 Pt transferred for higher level of care 05/14. [facility]
== END 2024-05-14 18:15 | disposition short-term general hospital (02) | DRG 321 ==
LOC: ANHED 07:36 → ANHICU 07:47 → ANHIMU 05-13 18:06
PROVIDERS: General Practice; Internal Medicine; Preventive Medicine Aerospace Medicine; Admitting Provider Internal Medicine; Emergency Provider Student in an Organized Health Care Education/Training Program; PCP Family Medicine; Visit Provider Internal Medicine Cardiovascular Disease
PROC: 4A023N7 Measurement of Cardiac Sampling and Pressure, Left Heart, Percutaneous Approach (ICD-10-PCS; CPT 93452; principal; 2024-05-12 07:40)
PROC: 027034Z Dilation of Coronary Artery, One Artery with Drug-eluting Intraluminal Device, Percutaneous Approach (ICD-10-PCS; 2024-05-12 07:40)
PROC: 027034Z Dilation of Coronary Artery, One Artery with Drug-eluting Intraluminal Device, Percutaneous Approach (ICD-10-PCS; 2024-05-12 07:40)
DX: I21.02 ST elevation (STEMI) myocardial infarction involving left anterior descending coronary artery (principal); E11.10 Type 2 diabetes mellitus with ketoacidosis without coma; I49.01 Ventricular fibrillation; R57.0 Cardiogenic shock; I97.790 Other intraoperative cardiac functional disturbances during cardiac surgery; I24.1 Dressler's syndrome; R09.02 Hypoxemia; I25.10 Atherosclerotic heart disease of native coronary artery without angina pectoris; I25.5 Ischemic cardiomyopathy; I11.0 Hypertensive heart disease with heart failure; I50.9 Heart failure, unspecified; E78.5 Hyperlipidemia, unspecified; D72.828 Other elevated white blood cell count; E11.65 Type 2 diabetes mellitus with hyperglycemia; D72.829 Elevated white blood cell count, unspecified; Z11.52 Encounter for screening for COVID-19; E66.9 Obesity, unspecified; Z68.34 Body mass index [BMI] 34.0-34.9, adult
CPT/HCPCS: 36415; 36569; 71045; 80048; 80053; 80061; 80074; 81001; 82010; 82948; 83036; 83690; 83735; 83880; 84100; 84484; 85025; 85027; 85610; 85730; 87637; 87641; 93005; 94762; 99285; A9270; C8929; J0583; J1644; J1650; J1815; J1940; J2003; J2250; J2270; J2305; J2371; J2405; J3010; J7030; J7040; J7060; Q9957